=== PATIENT | female | born 1955 | race Caucasian/White ===

== ENCOUNTER 2018-11-29 13:35 | Inpatient (IN) ==
[2018-11-29 14:39] LABS: Appearance Urine Clear (Clear); Bacteria Urine Automated Negative (Negative); Bilirubin Urine Negative (Negative); Blood Urine Negative (Negative); Color Urine Yellow; Epithelial Cell Urine Auto >30 /lpf (0-5); Glucose Urine UA Negative (Negative); Ketones Urine Negative (Negative); Leukocyte Esterase Urine Trace (Negative); Nitrite Urine Negative (Negative); Protein Urine Negative (Negative); RBC Urine Automated 0-4 /hpf (0-4); Specific Gravity Urine 1.011 (1.000-1.030); Urobilinogen Urine Negative (Negative); pH Urine 5.5 (4.5-7.5)
[2018-11-29 15:08] LABS: Basophils # (auto) 0.05 K/uL (0-0.2); Basophils % (auto) 1.6 %; Eosinophils # (auto) 0.12 K/uL (0-0.5); Eosinophils % (auto) 3.8 %; Hematocrit (blood only) 37.2 % (37-47); Hemoglobin 13.3 g/dL (12.0-16.0); Lymphocytes % (auto) 25.1 %; Mean Corpuscular Hgb Conc 35.8 g/dL (32-36); Mean Corpuscular Volume 87.3 fL (80-100); Mean Platelet Volume 11.4 fL (7.4-10.4); Monocytes # (auto) 0.43 K/uL (0.11-0.59); Monocytes % (auto) 13.5 %; Neutrophils # (auto) 1.79 K/uL (1.4-6.5); Platelet Count 197 K/uL (130-400); RDW Coefficient of Variation 13.9 % (11.5-14.5); RDW Standard Deviation 43.9 fL (36.4-46.3); Red Blood Count 4.26 M/uL (4.2-5.4); White Blood Count 3.19 K/uL (4.8-10.8)
[2018-11-29 15:11] LABS: Amphetamines+Metham, Urine Neg (Neg); Barbiturates, Urine Neg (Neg); Benzodiazepine, Urine Neg (Neg); Cocaine, Urine Neg (Neg); MDMA (Ecstacy), Urine Neg (Neg); Methadone, Urine Neg (Neg); Opiate, Urine Neg (Neg); Phencyclidine, Urine Neg (Neg)
[2018-11-29 15:22] LABS: Albumin Level 3.7 gm/dl (3.4-5.0); BUN Creatinine Ratio 14.8 (10-20); Calcium 8.9 mg/dl (8.5-10.1); Creatinine Clr Calc Pharmacy 80.3 ml/min; Est GFR (African American) 106.5; Est GFR (Non-African American) 91.9; Potassium 3.9 mmol/L (3.5-5.1)
[2018-11-29 15:30] LABS: Acetaminophen < 2 ug/ml (10-30); Salicylate < 1.7 mg/dl (2.8-20)
[2018-11-29 15:32] LABS: Albumin Globulin Ratio 1.1 (0.9-2); Bilirubin,Total 0.5 mg/dl (0.2-1); Globulin 3.5 gm/dl (2.5-4.0); Total Protein 7.2 gm/dl (6.4-8.2)
--- NOTE | 2018-11-29 15:40 | Emergency Department Note ---
Entered by Ashlee Meadows acting as a scribe for Dago Hopkins M.D. History of Present Illness General Chief complaint: Mental Health Evaluation Stated complaint: MENTAL HEALTH EVALUATION Source: patient and family () History of Present Illness Provider complaint: suicidal ideation Onset (ago): week(s) (few weeks ago) Location: left and right Maximum Pain Intensity: 3 Quality: + other (suicidal ideation) Relieved By: not by medication Associated symptoms: + other (Negative visual hallucinations; Negative auditory hallucinations; Positive insomnia); no loss of appetite The patient is a 63 year old female who presents to the Emergency Room with complaints of an episode of suicidal ideation that started a few weeks ago. The patient states that she had back surgery on August 11 which results in a plastic guard over her incision. The patient expresses that afterwards she felt like bugs were crawling underneath her incision but blamed it on narcotics. The patient reports continuing to feel this sensation for a while and assumes that it was in her head the whole time. The patient states that afterwards she complained of bug infestation around her household and had it investigated which resulted to no findings of infestation. The patient reports going to her family doctor who said she didn't have lice of bug bites. The patient expresses that afterwards she developed OCD behavior which involved specific placement of items and cleanliness of household. The patient denies ever having OCD. The patient reports that she feels like her skin is burning and something is in her nose. The patient expresses that she has a suicidal plan and has started writing letters to her and children. The patient denies self harm or a history of depression. The patient states that 18 years ago she was admitted because she was having a breakdown but reports not having a suicidal plan. The patient states that other than having bursitis in her hips her recovery from surgery was well. The patient states that she is eating and drinking fine but is unable to sleep. The patient denies visual and auditory hallucinations. The patient was prescribed depression medication three weeks ago. The patient's states that the patient is known to be highs strung. Home Medications Home Medications Medication Instructions Recorded Confirmed Type Hair,Skin and Nails 1 tab PO DAILY 11/29/18 11/29/18 History acetaminophen [Tylenol Extra 1,000 mg PO Q6 PRN 11/29/18 11/29/18 History Strength] buspirone 5 mg PO QAM 11/29/18 11/29/18 History buspirone 10 mg PO QPM 11/29/18 11/29/18 History agtykgjjkt-immvouyawejxw-avwl 1 - 2 cap PO Q8 PRN 11/29/18 11/29/18 History [Fioricet] cholecalciferol (vitamin D3) 1,000 unit PO DAILY 11/29/18 11/29/18 History [Vitamin D3] chromium picolinate 200 mcg PO DAILY 11/29/18 11/29/18 History conjugated estrogens [Premarin] 0.3 mg PO DAILY 11/29/18 11/29/18 History gabapentin 300 mg PO HS 11/29/18 11/29/18 History hydroxychloroquine 400 mg PO HS 11/29/18 11/29/18 History hydroxyzine HCl 10 mg PO QID PRN 11/29/18 11/29/18 History ketoconazole 1 % TOPICAL 3XWK 11/29/18 11/29/18 History linaclotide [Linzess] 145 mcg PO DAILY PRN 11/29/18 11/29/18 History spironolactone 25 mg PO BID 11/29/18 11/29/18 History topiramate 75 mg PO BID 11/29/18 11/29/18 History Allergies Allergy/AdvReac Type Severity Reaction Status Date / Time Iodinated Contrast- Oral and Allergy Unknown 0 Verified 05/10/15 17:46 IV Dye Sulfa (Sulfonamide Allergy Unknown Verified 05/10/15 17:46 Antibiotics) Past Med/Surg History Medical History Constipation GERD (gastroesophageal reflux disease) No pertinent family history Obesity Osteoarthritis Surgical History History of lumbar fusion Family History Other No pertinent family history Social History Preferred Language: Lao Visual Impairment: No Limitations Hearing Ability: Normal marital status: Current Living Situation: Family current occupational status: unemployed Feels Safe at Home: Yes Smoking Status: Never smoker Hx Substance Use: No Review of Systems See HPI for pertinent positives & negatives. and A total of 10 systems reviewed and were otherwise negative Physical Exam Vital Signs Vital Signs - 24 hr 11/29/18 13:38 11/29/18 15:45 Temperature 36.4 C L Temperature Source Oral Sepsis Recent Fever Within 48 Hours No Sepsis New/Unexplained Change in Mental Status No Sepsis Action Taken by Nursing No Action Required Pulse Rate 87 Pulse Rate [Right Finger] 70 Pulse Rhythm Regular Pulse Rhythm [Right Finger] Regular Pulse Strength Normal Pulse Strength [Right Finger] Normal Respiratory Rate 20 20 Respiratory Effort / Characteristics Non-Labored Spontaneous Non-Labored Spontaneous Respiratory Depth Normal Normal Respiratory Pattern Regular Regular Blood Pressure 186/110 H Blood Pressure [Right Arm] 163/75 H Blood Pressure Mean 135 Blood Pressure Mean [Right Arm] 104 Blood Pressure Position Sitting Blood Pressure Position [Right Arm] Sitting Pulse Oximetry 100 100 Oxygen Delivery Method Room Air Room Air GENERAL: Awake, alert, anxious-appearing and slightly tearful. HENT: Normocephalic, atraumatic. EYES: Normal conjunctiva. Sclera non-icteric. RESPIRATORY: Clear to auscultation. No wheezes. Normal respiratory effort. CARDIAC: Normal rate. Normal rhythm. Extremities warm and well perfused. GI: Soft, non-distended. MUSCULOSKELETAL: Atraumatic. Chest examination reveals no tenderness. There is no CVA tenderness to palpation. . SKIN: Warm and dry. No rash or jaundice noted. PSYCH: Denies HI endorses SI. Thoughts of bug infestation denies other hallucinations. Anxious. Course 1400: Past medical records reviewed. The patient was evaluated in room A8. A complete history and physical exam was performed. 1540: I reviewed the patient's case with [address] [place] [id number]. They will evaluate the patient for further management. 1818: I was informed that the patient was accepted into [address] [facility] Consultations Consultation #1: I reviewed the patient's case with [address] [place] [id number]. They will evaluate the patient for further management. Time: 15:40 Medical Decision Making Differential Diagnosis Differential diagnosis includes: mood disorder, infection, hypoglycemia, electrolyte abnormalities, cardiac sources, intracerebral event, toxicologic, neurologic, as well as others were entertained. Medical Records Attestation: I reviewed the patient's medical records. Home Medications Current Medication List: was personally reviewed by me Laboratory Data Attestation: I reviewed the patient's lab results. Result diagrams: 11/29/18 14:43 11/29/18 14:43 Lab Results 11/29/18 11/29/1811/29/19 Range/Units 13:56 13:56 14:43 WBC 3.19 L (4.8-10.8) K/uL RBC 4.26 (4.2-5.4) M/uL Hgb 13.3 (12.0-16.0) g/dL Hct 37.2 (37-47) % MCV 87.3 (80-100) fL MCH 31.2 (25-34) pg MCHC 35.8 (32-36) g/dL RDW Std Deviation 43.9 (36.4-46.3) fL RDW Coeff of Dustin 13.9 (11.5-14.5) % Plt Count 197 (130-400) K/uL MPV 11.4 H (7.4-10.4) fL Immature Gran % (Auto) 0.0 % Neut % (Auto) 56.0 % Lymph % (Auto) 25.1 % Reagan % (Auto) 13.5 % Eos % (Auto) 3.8 % Baso % (Auto) 1.6 % Immature Gran # (Auto) 0.00 (0.00-0.02) K/uL Neut # (Auto) 1.79 (1.4-6.5) K/uL Lymph # (Auto) 0.80 L (1.2-3.4) K/uL Reagan # (Auto) 0.43 (0.11-0.59) K/uL Eos # (Auto) 0.12 (0-0.5) K/uL Baso # (Auto) 0.05 (0-0.2) K/uL Sodium (136-145) mmol/L Potassium (3.5-5.1) mmol/L Chloride (98-107) mmol/L Carbon Dioxide (21-32) mmol/L Anion Gap (3-11) BUN (7-18) mg/dl Creatinine (0.6-1.2) mg/dl Est Cr Clr Drug Dosing ml/min Est GFR ( Amer) Est GFR (Non-Af Amer) BUN/Creatinine Ratio (10-20) Glucose (70-99) mg/dl Calcium (8.5-10.1) mg/dl Total Bilirubin (0.2-1) mg/dl AST (15-37) U/L ALT (12-78) U/L Alkaline Phosphatase (45-117) U/L Total Protein (6.4-8.2) gm/dl Albumin (3.4-5.0) gm/dl Globulin (2.5-4.0) gm/dl Albumin/Globulin Ratio (0.9-2) TSH (0.300-4.500) uIu/ml Urine Color Yellow Urine Appearance Clear (Clear) Urine pH 5.5 (4.5-7.5) Ur Specific [place] 1.011 (1.000-1.030) Urine Protein Negative (Negative) Urine Glucose (UA) Negative (Negative) Urine Ketones Negative (Negative) Urine Blood Negative (Negative) Urine Nitrite Negative (Negative) Urine Bilirubin Negative (Negative) Urine Urobilinogen Negative (Negative) Ur Leukocyte Esterase Trace H (Negative) Urine WBC (Auto) 1-5 (0-5) /hpf Urine RBC (Auto) 0-4 (0-4) /hpf U Hyaline Cast (Auto) 1-5 (0-5) /lpf U Epithel Cells (Auto) >30 H (0-5) /lpf Urine Bacteria (Auto) Negative (Negative) Salicylates (2.8-20) mg/dl Urine Opiates Screen Neg (Neg) Ur Methadone, Qual Neg (Neg) Acetaminophen (10-30) ug/ml Urine Barbiturates Neg (Neg) Ur Phencyclidine (PCP) Neg (Neg) U Amphetamin/Meth Scrn Neg (Neg) MDMA (Ecstasy) Screen Neg (Neg) U Benzodiazepines Scrn Neg (Neg) Ur Cocaine Metabolite Neg (Neg) U Marijuana (THC) Screen Neg (Neg) Ethyl Alcohol mg/dL (0-3) mg/dl 11/29/18 11/29/18 11/29/18 Range/Units 14:43 14:43 14:43 WBC (4.8-10.8) K/uL RBC (4.2-5.4) M/uL Hgb (12.0-16.0) g/dL Hct (37-47) % MCV (80-100) fL MCH (25-34) pg MCHC (32-36) g/dL RDW Std Deviation (36.4-46.3) fL RDW Coeff of Dustin (11.5-14.5) % Plt Count (130-400) K/uL MPV (7.4-10.4) fL Immature Gran % (Auto) % Neut % (Auto) % Lymph % (Auto) % Reagan % (Auto) % Eos % (Auto) % Baso % (Auto) % Immature Gran # (Auto) (0.00-0.02) K/uL Neut # (Auto) (1.4-6.5) K/uL Lymph # (Auto) (1.2-3.4) K/uL Reagan # (Auto) (0.11-0.59) K/uL Eos # (Auto) (0-0.5) K/uL Baso # (Auto) (0-0.2) K/uL Sodium 138 (136-145) mmol/L Potassium 3.9 (3.5-5.1) mmol/L Chloride 108 H (98-107) mmol/L Carbon Dioxide 22 (21-32) mmol/L Anion Gap 8.0 (3-11) BUN 10 (7-18) mg/dl Creatinine 0.71 (0.6-1.2) mg/dl Est Cr Clr Drug Dosing 80.3 ml/min Est GFR ( Amer) 106.5 Est GFR (Non-Af Amer) 91.9 BUN/Creatinine Ratio 14.8 (10-20) Glucose 76 (70-99) mg/dl Calcium 8.9 (8.5-10.1) mg/dl Total Bilirubin 0.5 (0.2-1) mg/dl AST 24 (15-37) U/L ALT 29 (12-78) U/L Alkaline Phosphatase 82 (45-117) U/L Total Protein 7.2 (6.4-8.2) gm/dl Albumin 3.7 (3.4-5.0) gm/dl Globulin 3.5 (2.5-4.0) gm/dl Albumin/Globulin Ratio 1.1 (0.9-2) TSH 1.330 (0.300-4.500) uIu/ml Urine Color Urine Appearance (Clear) Urine pH (4.5-7.5) Ur Specific [place] (1.000-1.030) Urine Protein (Negative) Urine Glucose (UA) (Negative) Urine Ketones (Negative) Urine Blood (Negative) Urine Nitrite (Negative) Urine Bilirubin (Negative) Urine Urobilinogen (Negative) Ur Leukocyte Esterase (Negative) Urine WBC (Auto) (0-5) /hpf Urine RBC (Auto) (0-4) /hpf U Hyaline Cast (Auto) (0-5) /lpf U Epithel Cells (Auto) (0-5) /lpf Urine Bacteria (Auto) (Negative) Salicylates < 1.7 L (2.8-20) mg/dl Urine Opiates Screen (Neg) Ur Methadone, Qual (Neg) Acetaminophen < 2 L (10-30) ug/ml Urine Barbiturates (Neg) Ur Phencyclidine (PCP) (Neg) U Amphetamin/Meth Scrn (Neg) MDMA (Ecstasy) Screen (Neg) U Benzodiazepines Scrn (Neg) Ur Cocaine Metabolite (Neg) U Marijuana (THC) Screen (Neg) Ethyl Alcohol mg/dL < 3.0 (0-3) mg/dl Blood Pressure Blood Pressure Findings: Normal blood pressure MDM Narrative 63-year-old female with a history of GERD and cutaneous lupus as well as depression presenting to the emergency department today with her . Patient was evidently evaluated by can help. Seen by dermatology as she was fee ling that she was being bitten by bugs. She is been seeing bugs throughout the house a lot. These have not been real. Was some verbalization to others that she wanted to harm her self and came in for evaluation for possible and inpatient psychiatric treatment. No history of this. No drug or alcohol history. Basic medical clearance was completed. Did see the rotary furnace operator this morning. Patient was agreeable for inpatient treatment she does endorse some thoughts of wanting to harm her self. Endorses plan but did not give any specific details. Denies other hallucinations or HI. Given the severity of the delusional parasitosis causing her to have thoughts of self-harm and writing letters to family members believe inpatient treatment be beneficial. Case management assisted with evaluation. Referral to [facility] made. Evaluated there and accepted for further inpatient psychiatric treatment. 201 signed. Impression & Plan Delusions of parasitosis, Suicidal thoughts, OCD (obsessive compulsive disorder) Discharge Plan Visit Data *Final* Discharge Date/Time: 11/29/18 18:20 Chief Complaint: Mental Health Evaluation Stated Complaint: MENTAL HEALTH EVALUATION ED Provider: Dago Hopkins Discharge Problem: Delusions of parasitosis, Suicidal thoughts, OCD (obsessive compulsive disorder) Patient Disposition: Admitted As Inpatient Discharge Instructions Interventions: ED Discharge Assessment Last Done: 11/29/18 18:20 Discharge Problem: OCD (obsessive compulsive disorder) Qualifiers: Obsessive-compulsive disorder type: unspecified Qualified Code(s): F42.9 - Obsessive-compulsive disorder, unspecified The scribe's documentation has been prepared under my direction and personally reviewed by me in its entirety. I confirm that the note above accurately reflects all work, treatment, procedures, and medical decision making performed by me.
[2018-11-29] MEDS ORDERED: BISMUTH SUBSALICYLATE PER ML OMNICELL CHARGE PO PRN (19:17)
[2018-11-29] MEDS ORDERED: SODIUM CHLORIDE 0.65% NA SOLN 45 ML (OCEAN) PRN (19:17)
[2018-11-29] MEDS ORDERED: MAGNESIUM HYDROXIDE SUSP 30 ML UDC PO PRN (19:17)
[2018-11-29] MEDS ORDERED: ALUMINUM/MAGNESIUM SUSP 30 ML UDC PO PRN (19:17)
[2018-11-29] MEDS ORDERED: hydrOXYzine HCl 10 MG TAB PO PRN (19:22)
[2018-11-29] MEDS: TOPIRAMATE 25 MG TAB PO SCH (21:33)
[2018-11-29] MEDS: HYDROXYCHLOROQUINE SULFATE 200 MG TAB PO SCH (21:33)
[2018-11-29] MEDS: SPIRONOLACTONE 25 MG TAB PO SCH (21:34)
[2018-11-29] MEDS: GABAPENTIN 300 MG CAP PO SCH (21:36)
[2018-11-30] MEDS: SPIRONOLACTONE 25 MG TAB PO SCH ×2 (08:08→17:20)
[2018-11-30] MEDS: TOPIRAMATE 25 MG TAB PO SCH ×2 (08:09→21:27)
[2018-11-30] MEDS: ESTROGENS, CONJUGATED 0.3 MG TAB PO SCH (08:09)
[2018-11-30] MEDS: CHOLECALCIFEROL 1,000 UNITS TAB PO SCH (08:09)
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
[2018-11-30] MEDS ORDERED: BUTALBITAL/ACETAMIN/CAFFEINE TAB PO PRN (18:11)
[2018-11-30] MEDS: GABAPENTIN 300 MG CAP PO SCH (21:28)
[2018-11-30] MEDS: HYDROXYCHLOROQUINE SULFATE 200 MG TAB PO SCH (21:28)
[2018-12-01] MEDS: SPIRONOLACTONE 25 MG TAB PO SCH ×2 (08:46→17:09)
[2018-12-01] MEDS: ESTROGENS, CONJUGATED 0.3 MG TAB PO SCH (08:47)
[2018-12-01] MEDS: TOPIRAMATE 25 MG TAB PO SCH ×2 (08:47→21:21)
[2018-12-01] MEDS: CHOLECALCIFEROL 1,000 UNITS TAB PO SCH (08:47)
[2018-12-01] MEDS ORDERED: NON-FORMULARY MEDICATION (Chromium Picolinate 200 MCG) PO SCH (09:00)
[2018-12-01] MEDS ORDERED: NON-FORMULARY MEDICATION (Cholecalciferol (Vitamin D3) [Vitamin D3] 1,000 UNITS) PO SCH (09:00)
[2018-12-01] MEDS: SERTRALINE HCL 50 MG TABLET PO SCH (10:38)
--- NOTE | 2018-12-01 12:55 | Psychiatric Progress Note ---
Date of Service December 01, 2018 Impression / Recommendations Impression 63-year-old female admitted voluntarily for inpatient psychiatric treatment on 11/29/18 due to obsessional belief of exposure to bugs. Pt constant uncomfortable feeling/belief that her home was being infiltrated by bugs since a spinal surgery in 07/2018. Pt admits to progression of this obsessive thought - leading to rather significant interference with her functioning at home. Hopelessness escalated to the point of suicidal ideation, which was expressed to patient's derrick builder - who ultimately recommended mental health evaluation. Pt presentation is rather interesting, as she denies former psychiatric history. She does not verbalize any other obsessions or compulsions known to her, and denies criteria to suggest a formal anxiety or depressive disorder. Pt endorses obsessional thoughts, but does not indicate any compulsive actions as a result of this anxiety. Although she is very specific about the presence of bugs and her ability to identify "safe areas" where she is free of risk of contamination - she does not clearly verbalize true hallucinations (auditory, visual, or tactile). The differential includes delusional parasitosis, OCD, depression with psychosis, or some combination of these. Treatment initiated to target obsessive thoughts and low mood. Pt started on sertraline, which will be titrated as tolerated to target symptoms. Additional information will likely be necessary in order to determine if there are other OCD-like tendencies in patient's history, or her these beliefs/behavior may be more delusional in nature. Can consider use of an antipsychotic medication as augmentation if indicated as additional history is obtained. Will need to schedule family meeting with patient's , and obtain collateral information from him regarding patient's history of symptoms. At this time, inpatient psychiatric hospitalization in medically necessary due to obsessive/delusional belief of bugs being present on the patient and in her home, limited ability to function at home with current symptoms, and verbalization of suicidal ideation with rather deep consideration of the next steps in her plan. Patient is at high risk of harm to herself is she is discharged premature without adequate psychiatric treatment. (1) Suicidal thoughts: 11/30 - Admitted to a locked inpatient behavioral health unit, on q15 minute safety checks - Encourage medication initiation/adjustments as indicated - Encourage participation in group and recreational therapies - Gather collateral information from outpatient providers - Suggest family meeting to involve outpatient supports in safety planning - Arrange appropriate aftercare 12/01 - Denies overt SI, but remains somewhat hopeless - No progress at this time with safety or discharge planning (2) OCD (obsessive compulsive disorder): 11/30 - Will treat initially for an obsessive presentation, with possible obsessive compulsive disorder presentation - will be beneficial to gather collateral information from the patient's to determine if she may be minimizing other OCD tendencies to further clarify diagnosis - Differential includes anxiety NOS, psychosis, NOS, anxiety or depressive disorder with psychotic features, or condition better explained by a medical condition (surgical complications leading to paresthesia, etc.) - Reviewed recommendation for initiation of an SSRI to target obsessions and related anxiety. Risks and benefits reviewed. Will begin sertraline, starting tomorrow morning at 50mg daily - can titrate dose as tolerated - Will require collateral information from family, and suggesting family meeting prior to discharge to discuss aftercare and safety planning - Encourage participation in group and recreational programming - Hydroxyzine prn for acute anxiety 12/01 - Continue treatment as above, received initial dose of sertraline this morning - titrate as tolerated to target obsessive anxiety and depressed mood - Obtain collateral information from patient's , schedule family meeting to discuss discharge/safety planning - Continue to encourage participation in group and recreational programming 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 - Continue home dose of hydroxychloroquine 400mg qHS Inventory Assets Strengths: Willingness for treatment, support of Needs: Reality-testing of obsessive thoughts; initiation of appropriate medications to target symptoms Risk Factors Assessment Male: No : Yes Do You Have Access To A Gun?: Yes ( to secure) Health Problems: Yes Mental Health Diagnoses: No Substance Use Disorders: No Previous Attempt: No Previous Psychiatric Hospitalization: Yes ([facility] - 09/2000) Hopelessness: Yes Smoker: No Protective Factors Assessment Taoist Beliefs: Yes : Yes Responsible for Young Children: No Employed: No (Retired from [employer]) Stable Relationships: Yes Supportive Family: Yes Interval History Identifying Information LAURA MONTOYA is a 63-year-old F who currently lives in [place] with her . Pt reports a history of depressive episodes and anxiety, but has no formal psychiatric providers. Pt was admitted on 08/05/19 18:07 on a 201 voluntary commitment for suicidal ideation and concerning belief that she was exposed to "bugs" which have infiltrated her home following a surgery in 07/2018. Pt had reported suicidal plan to overdose on medications, which she acquired. Pt was planning to write goodbye letters to family and divide her belongings when she decided to report her suicidal ideation to her derrick builder - who ultimately recommended admission. Chief Complaint "So what is this 72-hour hold I signed?" Review of Systems Notes Constitutional: reports discomfort last evening, affecting sleep Cardiovascular: denied Respiratory: denied Gastrointestinal: denied Neurological: denied Psychiatric: denies symptoms other than stated above Total of at least 10 systems reviewed, pertinent positives as above and in HPI. Sleep Information Total Hours of Sleep: 6.5 Sleep Comments: pt given vistaril per rn. pt on q-15 minute checks Meal Information Percent Meal Consumed - Breakfast: 90 Percent Meal Consumed - Lunch: 100 Percent Meal Consumed - Dinner: 100 Subjective Subjective Patient was seen & assessed and interval progress reviewed with Treatment Team. Staff report the patient has been participating in group. Discussed need to gather collateral information from the patient's and schedule a family meeting. Pt was seen today to assess progress since admission. Pt initially inquires about a "72-hour hold" she was informed about in the ED. Pt denies having signed her 72-hour notice since admission to the unit. Mental health rights were explained to the patient as it relates to her signing in for voluntary admission, ability to sign a 72-hour notice requesting to leave treatment AMA, and explanation of safety and discharge planning required in order to feel comfortable with discharge. Pt asked appropriate questions, and admits she was just desiring to have a clearer understanding. Pt states her question stemmed from not sleeping well last evening - uncomfortable bed considering her recent spinal surgery. Pt states, "I just didn't sleep well and wanted to be home, so I didn't know how much longer I would need to be here." Pt was reminded about initiation of sertraline and remained agreeable to the medication trial. She admits that her obsessive thoughts and anxiety is reduced on the unit, but not resolved entirely. She continues to be concerned about the contamination of her home with "bugs" - stating her brought clothes for her last evening, which she washed rather promptly after receiving them. Pt states, "the counselor suggested I not wash them, then said maybe only wash half. After they pulled out all the outfits with strings and gave me the stuff I was allowed to have, there wasn't much left - so I washed it all." Pt states she is somewhat uncomfortable with having a roommate due to concerns for potential contamination, but continues to deny hallucinations. Pt denies SI and is feeling mildly more hopeful after sharing these thoughts and being able to openly process them. She is aware of our recommendations for a psychiatric medication prescriber and therapist on discharge, to continue to aid her in treatment of these concerns. Pt denied other specific needs or concerns today. Physical Exam Psychiatric Orientation: alert, oriented x 3 and cooperative Apperance: appropriately dressed, appropriately groomed and appeared stated age Eye Contact: good eye contact Motor Behavior: no abnormal motor movements (seated at table in lunch room) Speech: normal rate/rhythm/volume of speech Affect: + blunted affect (not appearing acutely depressed or anxious, but mildly fatigued) Mood: + anxious mood ("still a little bit worried") Thought Process: goal directed thought process and clear/coherent thought process Thought Content: + obsessions (some obsessive thoughts regarding bugs and contamination while on unit) and + hopelessness (ongoing, but improved somewhat); no delusions (at this time obsessions are not clearly in the realm of delusional beliefs) Suicidal Thoughts: denies suicidal thoughts and denies suicidal intent Homicidal Thoughts: denies homicidal thoughts Hallucinations: no auditory hallucinations, no visual hallucinations and no tactile hallucinations Cognition: attention grossly intact and language grossly intact Estimated Intelligence: consistent with education level Insight: + fair insight Judgement: + fair judgement Vital Signs (Past 24 Hours) Last Vital Signs Temp 37 C 12/01/18 06:56 Pulse 74 12/01/18 06:58 Resp 16 12/01/18 06:56 BP 151/87 H 12/01/18 06:58 Pulse Ox 100 11/29/18 19:31 Results & Data Current Inpatient Medications Current Inpatient Medications: Current Inpatient Medications Acetaminophen (Tylenol) 650 mg PO Q4H PRN PRN Reason: Headache or Minor Fever Stop: 12/29/18 19:16 Acetaminophen/Butalbital/Caffeine (Fioricet) 1 tab PO Q8 PRN PRN Reason: Migraine Headache Stop: 12/30/18 18:10 Al Hydrox/Mg Hydrox/Simethicone (Maalox) 30 ml PO Q4H PRN PRN Reason: GI Upset Stop: 12/29/18 19:16 Bismuth Subsalicylate (Kaopectate) 15 ml PO PRN PRN PRN Reason: Loose Stool Stop: 12/29/18 19:16 Buspirone HCl (Buspar) 7.5 mg PO [facility] Stop: 12/29/18 21:59 Last Admin: 11/30/18 21:27 Dose: 7.5 mg Documented by: Buspirone HCl (Buspar) [facility] [place] Stop: 12/30/18 08:59 Last Admin: 12/01/18 08:46 Dose: 5 mg Documented by: Estrogens Conjugated (Premarin) 0.3 mg PO QAM [facility] Stop: 12/30/18 08:59 Last Admin: 12/01/18 08:47 Dose: 0.3 mg Documented by: Gabapentin (Neurontin) 300 mg PO [facility] Stop: 12/29/18 21:59 Last Admin: 11/30/18 21:28 Dose: 300 mg Documented by: Hydroxychloroquine Sulfate (Plaquenil) 400 mg PO [facility] Stop: 12/29/18 21:59 Last Admin: 11/30/18 21:28 Dose: 400 mg Documented by: Hydroxyzine HCl (Vistaril) 50 mg PO HSZ PRN PRN Reason: Insomnia Stop: 12/29/18 19:16 Last Admin: 11/30/18 23:24 Dose: 50 mg Documented by: Hydroxyzine HCl (Vistaril) 25 mg PO Q4H PRN PRN Reason: Anxiety Stop: 12/29/18 19:16 Last Admin: 11/30/18 09:58 Dose: 25 mg Documented by: Hydroxyzine HCl (Vistaril) 10 mg PO QID PRN PRN Reason: Anxiety Stop: 12/29/18 19:21 Magnesium Hydroxide (Milk Of Magnesia) 30 ml PO DAILY PRN PRN Reason: Heartburn Stop: 12/29/18 19:16 Miscellaneous (Order Awaiting Action) 1 ea N/A QS [facility] Stop: 12/31/18 00:00 Last Admin: 12/01/18 10:37 Dose: Not Given Documented by: Sertraline HCl (Zoloft) 50 mg PO QAM [facility] Stop: 12/31/18 09:29 Last Admin: 12/01/18 10:38 Dose: 50 mg Documented by: Sodium Chloride ([place] Nasal) 1 - 2 sprays NA PRN PRN PRN Reason: Nasal Dryness/Congestion Stop: 12/29/18 19:16 Spironolactone (Aldactone) 25 mg PO BID17 [facility] Stop: 12/29/18 19:59 Last Admin: 12/01/18 08:46 Dose: 25 mg Documented by: Topiramate (Topamax) 75 mg PO BID [facility] Stop: 12/29/18 20:59 Last Admin: 12/01/18 08:47 Dose: 75 mg Documented by: Vitamin D (Vitamin D3) 1,000 units PO QAM [facility] Stop: 12/30/18 08:59 Last Admin: 12/01/18 08:47 Dose: 1,000 units Documented by: Mental Health & Subst Abuse Tx Psychiatrist Name of Psychiatrist: Denise Whyte Psychiatrist's Psychiatric Appointment Comment: [id number] [facility] [address] Therapist Name of Therapist: [facility] - Shasha Lamligia Therapist's Date of Therapist Appointment: 12/06/18 Time of Therapist Appointment: 2pm. Therapy Appointment Comment: [address], [facility] [address], [place] [id number] Flame Cutter Name of Flame Cutter: None Post Discharge Appointments Primary Care Physician Name Of Family Doctor: [facility] Time of Appointment with PCP: follow up as needed. Provider Appointment Comment: [address], [place] [id number] CPT Code CPT Code 31830 (1) OCD (obsessive compulsive disorder) Obsessive-compulsive disorder type: unspecified Qualified Code(s): F42.9 - Obsessive-compulsive disorder, unspecified
[2018-12-01] MEDS: ACETAMINOPHEN 325 MG TAB PO PRN (14:39)
[2018-12-01] MEDS: LINZESS 145 MCG PO SCH (21:20)
[2018-12-01] MEDS: HYDROXYCHLOROQUINE SULFATE 200 MG TAB PO SCH (21:22)
[2018-12-01] MEDS: GABAPENTIN 300 MG CAP PO SCH (21:22)
[2018-12-02] MEDS: ACETAMINOPHEN 325 MG TAB PO PRN ×2 (00:39→12:30)
[2018-12-02] MEDS: SPIRONOLACTONE 25 MG TAB PO SCH ×2 (08:12→17:11)
[2018-12-02] MEDS: TOPIRAMATE 25 MG TAB PO SCH ×2 (08:13→21:42)
[2018-12-02] MEDS: LINZESS 145 MCG PO SCH ×2 (08:13→21:42)
[2018-12-02] MEDS: ESTROGENS, CONJUGATED 0.3 MG TAB PO SCH (08:13)
[2018-12-02] MEDS: SERTRALINE HCL 50 MG TABLET PO SCH (08:14)
[2018-12-02] MEDS: CHOLECALCIFEROL 1,000 UNITS TAB PO SCH (08:14)
[2018-12-02] MEDS ORDERED: KETOCONAZOLE 1% TOP SCH (08:30)
--- NOTE | 2018-12-02 08:41 | Psychiatric Progress Note ---
Date of Service December 02, 2018 Impression / Recommendations Impression 63-year-old female admitted voluntarily for suicidal ideation with a plan to overdose on hundreds of opiates which she stockpiled and obsessive thoughts about bug infestation in her home. The differential includes delusional parasitosis, OCD, depression with psychosis, or some combination of these. Sertraline initiated to target obsessive thoughts and low mood, but titration limited by GI side effects. Can consider use of an antipsychotic medication as augmentation if SSRI is insufficient. She has a meeting with her today, and is being referred for outpatient care. At this time, inpatient psychiatric hospitalization in medically necessary due to obsessive/delusional belief of bugs being present on the patient and in her home, limited ability to function at home with current symptoms, and suicidal ideation if these symptoms continue as "I don't want to live like this," with a plan and access to the means. Patient is at high risk of harm to herself is she is discharged premature without adequate psychiatric treatment. (1) Suicidal thoughts: 11/30 - Admitted to a locked inpatient behavioral health unit, on q15 minute safety checks - Encourage medication initiation/adjustments as indicated - Encourage participation in group and recreational therapies - Gather collateral information from outpatient providers - Suggest family meeting to involve outpatient supports in safety planning - Arrange appropriate aftercare 12/01 - Denies overt SI, but remains somewhat hopeless - No progress at this time with safety or discharge planning 12/02 - Family meeting with today - patient agrees to have him bring in her stash of opiate pain medications for safe disposal. Will also recommend that firearms be locked so that patient will not have access. - Work on safety plan - few supports/people she can talk to about stressors, home alone much of the time while working. (2) OCD (obsessive compulsive disorder): 11/30 - Will treat initially for an obsessive presentation, with possible obsessive compulsive disorder presentation - will be beneficial to gather collateral information from the patient's to determine if she may be minimizing other OCD tendencies to further clarify diagnosis - Differential includes anxiety NOS, psychosis, NOS, anxiety or depressive disorder with psychotic features, or condition better explained by a medical condition (surgical complications leading to paresthesia, etc.) - Reviewed recommendation for initiation of an SSRI to target obsessions and related anxiety. Risks and benefits reviewed. Will begin sertraline, starting tomorrow morning at 50mg daily - can titrate dose as tolerated - Will require collateral information from family, and suggesting family meeting prior to discharge to discuss aftercare and safety planning - Encourage participation in group and recreational programming - Hydroxyzine prn for acute anxiety 12/01 - Continue treatment as above, received initial dose of sertraline this morning - titrate as tolerated to target obsessive anxiety and depressed mood - Obtain collateral information from patient's , schedule family meeting to discuss discharge/safety planning - Continue to encourage participation in group and recreational programming 12/02 - Continue sertraline 50mg daily and monitor diarrhea. Continue titration once improves/resolves. - Continue participation in groups and therapy, working on stressors and healthy ways to cope. 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 - Continue home dose of hydroxychloroquine 400mg qHS Inventory Assets Strengths: Willingness for treatment, support of Needs: Reality-testing of obsessive thoughts; initiation of appropriate medications to target symptoms Risk Factors Assessment Male: No : Yes Do You Have Access To A Gun?: Yes ( to secure) Health Problems: Yes Mental Health Diagnoses: No Substance Use Disorders: No Previous Attempt: No Previous Psychiatric Hospitalization: Yes ([facility] - 09/2000) Hopelessness: Yes Smoker: No Protective Factors Assessment Temple Beliefs: Yes : Yes Responsible for Young Children: No Employed: No (Retired from [employer]) Stable Relationships: Yes Supportive Family: Yes Interval History Identifying Information LAURA MONTOYA is a 63-year-old F who currently lives in [place] with her , has a history of depression and anxiety, but no outpatient mental health treatment, who was admitted on 11/29/18 18:07 on a 201 voluntary commitment for suicidal ideation and obsessive thoughts about "bugs" which she believed infiltrated her home following a surgery in 07/2018. Pt had reported suicidal plan to overdose on medications, and had a stash of them at home, and was planning to write goodbye letters to family and divide her belongings when she decided to report her suicidal ideation to her chemical engineering intern, who called [facility]. Chief Complaint "I'm having some diarrhea". Review of Systems Notes diarrhea, mild nausea/cramping Sleep Information Total Hours of Sleep: 5.25 Sleep Comments: received 2 doses of hs vistaril and a dose of tylenil for generalizes aches/pain. had 2 episodes of diarrhea-she relates it to the start of her new antidepressant Meal Information Percent Meal Consumed - Breakfast: 90 Percent Meal Consumed - Lunch: 100 Percent Meal Consumed - Dinner: 50 Subjective Subjective Patient was seen & assessed and interval progress reviewed with Nursing and social work. Staff report she had a visit from her last night, and they have a family meeting this afternoon. Staff spoke with her who provided collateral information: Collateral from indicates a history of compulsive shopping, and confirmed that she started reporting bugs crawling on her after her surgery in July. She reoprts being bitten bu bugs, but he has never seen any. He expressed anger that she had a plan for suicide, as it was "selfish." She is going to groups and participating. On my assessment, she reports diarrhea which started last evening, with several liquid bowel movements and mild nausea/abdominal cramping, and decreased appetite this morning. She denies any other side effects. Mood has improved and she describes it as "pretty good," which she attributes to "not keeping everything to myself." It has been helpful for her to talk about her stress and anxiety, "just knowing that you're not the only person that's going through that." She has not been as focused on the bugs and infestation concerns, but talked to her about it last night and told him that even though she feels better, "everything isn't fixed, he can't just treat things the same, he has to go about things differently in the way he reacts to me." She shares long standing anxiety which has worsened in the past 4 months, chronic insomnia, and when she is struggling with these things, "he reacts with frustration, and then that turns to anger. He tells me to 'just stop, that's ridiculous, what's wrong with you?'" She had not shared her suicidal thoughts or plan to overdose with her prior to coming in to the ER, but reports she had been thinking about and planning "seriously" for suicide for 3 weeks prior to hospitalization. She has chronic back pain and has "accumulated pain meds over the years," and reports she has "hundreds" of opiate pain pills in a cupboard which she was planning on overdosing on. She is willing to allow her to bring them in for safe disposal. She also had a gun next to her bed, which he removed, although she is not sure how he secured it. She wants to work on "one thought at a time," and "not having the negative talk." She denies SI and feel safe here, but is concerned that she will relapse when she returns home due to strain in marriage, infestation concerns, and negative thinking. Physical Exam Psychiatric Orientation: alert and cooperative Apperance: appropriately dressed, appropriately groomed and appeared stated age Eye Contact: good eye contact Motor Behavior: steady gait and station and no abnormal motor movements Speech: normal rate/rhythm/volume of speech Affect: + depressed affect (but reactive, appropriate, less anxious) Mood: + anxious mood Improved from admission Thought Process: goal directed thought process Thought Content: + cognitive distortions Suicidal Thoughts: denies suicidal thoughts Homicidal Thoughts: denies homicidal thoughts Hallucinations: no auditory hallucinations and no visual hallucinations Cognition: recent memory grossly intact, remote memory grossly intact, attention grossly intact and language grossly intact Estimated Intelligence: consistent with education level Insight: good insight Judgement: good judgement Vital Signs (Past 24 Hours) Last Vital Signs Temp 36.8 C 12/02/18 06:00 Pulse 78 12/02/18 06:38 Resp 18 12/02/18 06:00 BP 161/81 H 12/02/18 06:38 Pulse Ox 100 11/29/18 19:31 Results & Data Current Inpatient Medications Current Inpatient Medications: Current Inpatient Medications Acetaminophen (Tylenol) 650 mg PO Q4H PRN PRN Reason: Headache or Minor Fever Stop: 12/29/18 19:16 Last Admin: 12/02/18 00:39 Dose: 650 mg Documented by: Acetaminophen/Butalbital/Caffeine (Fioricet) 1 tab PO Q8 PRN PRN Reason: Migraine Headache Stop: 12/30/18 18:10 Al Hydrox/Mg Hydrox/Simethicone (Maalox) 30 ml PO Q4H PRN PRN Reason: GI Upset Stop: 12/29/18 19:16 Bismuth Subsalicylate (Kaopectate) 15 ml PO PRN PRN PRN Reason: Loose Stool Stop: 12/29/18 19:16 Buspirone HCl (Buspar) 7.5 mg PO HS [facility] Stop: 12/29/18 21:59 Last Admin: 12/01/18 21:21 Dose: 7.5 mg Documented by: Buspirone HCl (Buspar) 5 mg PO QAM [facility] Stop: 12/30/18 08:59 Last Admin: 12/02/18 08:12 Dose: 5 mg Documented by: Estrogens Conjugated (Premarin) 0.3 mg PO QAM [facility] Stop: 12/30/18 08:59 Last Admin: 12/02/18 08:13 Dose: 0.3 mg Documented by: Gabapentin (Neurontin) [address] [facility] Stop: 12/29/18 21:59 Last Admin: 12/01/18 21:22 Dose: 300 mg Documented by: Hydroxychloroquine Sulfate (Plaquenil) [address] [facility] Stop: 12/29/18 21:59 Last Admin: 12/01/18 21:22 Dose: 400 mg Documented by: Hydroxyzine HCl (Vistaril) 50 mg PO HSZ PRN PRN Reason: Insomnia Stop: 12/29/18 19:16 Last Admin: 12/02/18 00:39 Dose: 50 mg Documented by: Hydroxyzine HCl (Vistaril) 25 mg PO Q4H PRN PRN Reason: Anxiety Stop: 12/29/18 19:16 Last Admin: 11/30/18 09:58 Dose: 25 mg Documented by: Hydroxyzine HCl (Vistaril) 10 mg PO QID PRN PRN Reason: Anxiety Stop: 12/29/18 19:21 Linaclotide (Linzess) 1 ea PO BID [facility] Stop: 12/31/18 20:59 Last Admin: 12/02/18 08:13 Dose: Not Given Documented by: Magnesium Hydroxide (Milk Of Magnesia) 30 ml PO DAILY PRN PRN Reason: Heartburn Stop: 12/29/18 19:16 Miscellaneous (Order Awaiting Action) 1 ea N/A QS [facility] Stop: 01/01/19 15:59 Sertraline HCl (Zoloft) 50 mg PO QAM [facility] Stop: 12/31/18 09:29 Last Admin: 12/02/18 08:14 Dose: 50 mg Documented by: Sodium Chloride ([place] Nasal) 1 - 2 sprays NA PRN PRN PRN Reason: Nasal Dryness/Congestion Stop: 12/29/18 19:16 Spironolactone (Aldactone) 25 mg PO BID17 [facility] Stop: 12/29/18 19:59 Last Admin: 12/02/18 08:12 Dose: 25 mg Documented by: Topiramate (Topamax) 75 mg PO BID [facility] Stop: 12/29/18 20:59 Last Admin: 12/02/18 08:13 Dose: 75 mg Documented by: Vitamin D (Vitamin D3) 1,000 units PO QAM [facility] Stop: 12/30/18 08:59 Last Admin: 12/02/18 08:14 Dose: 1,000 units Documented by: Mental Health & Subst Abuse Tx Psychiatrist Name of Psychiatrist: Denise Whyte Psychiatrist's Psychiatric Appointment Comment: [address] [place] [address] Therapist Name of Therapist: [facility] - Shasha Spangler Therapist's Date of Therapist Appointment: 12/06/18 Time of Therapist Appointment: 2pm. Therapy Appointment Comment: [address] [facility] [address], [place] [id number] [employer] Mixer Assembler Name of Food Mixer Assembler: None Post Discharge Appointments Primary Care Physician Name Of Family Doctor: [facility] Time of Appointment with PCP: follow up as needed. Provider Appointment Comment: [address], [place] [id number] CPT Code CPT Code 64542 (1) OCD (obsessive compulsive disorder) Obsessive-compulsive disorder type: unspecified Qualified Code(s): F42.9 - Obsessive-compulsive disorder, unspecified
[2018-12-02] MEDS ORDERED: KETOCONAZOLE 2% SHAMPOO 120 ML BTL EXT PRN (09:14)
[2018-12-02] MEDS ORDERED: DESTROY THIS MEDICATION ONE (14:15)
[2018-12-02] MEDS: HYDROXYCHLOROQUINE SULFATE 200 MG TAB PO SCH (21:44)
[2018-12-02] MEDS: GABAPENTIN 300 MG CAP PO SCH (21:44)
[2018-12-03] MEDS: SPIRONOLACTONE 25 MG TAB PO SCH ×2 (08:47→17:07)
[2018-12-03] MEDS: TOPIRAMATE 25 MG TAB PO SCH ×2 (08:50→23:02)
[2018-12-03] MEDS: ESTROGENS, CONJUGATED 0.3 MG TAB PO SCH (08:50)
[2018-12-03] MEDS: LINZESS 145 MCG PO SCH ×2 (08:50→23:02)
[2018-12-03] MEDS: SERTRALINE HCL 50 MG TABLET PO SCH (08:51)
[2018-12-03] MEDS: CHOLECALCIFEROL 1,000 UNITS TAB PO SCH (08:51)
[2018-12-03] MEDS ORDERED: BUTALBITAL/ACETAMIN/CAFFEINE TAB PO STA (16:50)
--- NOTE | 2018-12-03 17:21 | Psychiatric Progress Note ---
Date of Service December 03, 2018 Impression / Recommendations Impression 63-year-old female admitted voluntarily for suicidal ideation with a plan to overdose on hundreds of opiates which she stockpiled and obsessive thoughts about bug infestation in her home. The differential includes delusional parasitosis, OCD, depression with psychosis, or some combination of these. Sertraline initiated to target obsessive thoughts and low mood, but titration limited by GI side effects. Can consider use of an antipsychotic medication as augmentation if SSRI is insufficient. She has a meeting with her today, and is being referred for outpatient care. Although the patient today voices a belief that she was experiencing delusional parasitosis and that her conviction that she and her home were contaminated with insects resulted as a function of "[her] mind playing tricks on [her]," there is still a certain reticence when she makes this statement and she acknowledges that she is afraid that when she returns home she may again began to experience the sensation of bugs crawling on her. She is aware of that while her wishes to be supportive, he is not particularly understanding and tends to be impatient when she speaks of seeing or feeling. She does note that she has not experienced any similar sensations here in the hospital. She says that she has not felt the need to identify a "safe zone," and has not felt uncomfortable sitting in a posterior furniture on the unit. She and I both see this as a positive sign. I am recommending that, as her recovery from back surgery continues, she focus on finding activities and sources of support outside of the home. I am concerned that this 63-year-old woman tells me that she essentially has no friends and does not have a comfortable relationship with her . Neither of her children live nearby, and we discussed ways of making friends and confidants after longterm. We also talked about a tendency to have "morbid thoughts" when one has too much time on one's hands, and the patient tells me that she personally believes that this has been part of her problem. (1) Suicidal thoughts: 11/30 - Admitted to a locked inpatient behavioral health unit, on q15 minute safety checks - Encourage medication initiation/adjustments as indicated - Encourage participation in group and recreational therapies - Gather collateral information from outpatient providers - Suggest family meeting to involve outpatient supports in safety planning - Arrange appropriate aftercare 12/01 - Denies overt SI, but remains somewhat hopeless - No progress at this time with safety or discharge planning 12/02 - Family meeting with today - patient agrees to have him bring in her stash of opiate pain medications for safe disposal. Will also recommend that firearms be locked so that patient will not have access. - Work on safety plan - few supports/people she can talk to about stressors, home alone much of the time while working. 12/03 -The patient tells me that she had a loaded gun sitting next to her bed during this entire episode. She has that she does not know how to load a gun, but that it had been loaded for her by her as a source of protection against invaders. She also tells me that she has never entertained thoughts of shooting herself, in part because she is familiar with persons who end up badly mutilating themselves through self-inflicted gunshot wounds. -As above, she notes that her thoughts of suicide focused on overdosing with medications. However, today, she tells me that she is not having any further thoughts of harming herself. -She notes that her has agreed to bring in the "stash" of narcotic pain medications for disposal. -The patient also reports that she will ask her to remove the gun, or at least the gun's bullets from the side of her bed at home. (2) OCD (obsessive compulsive disorder): 11/30 - Will treat initially for an obsessive presentation, with possible obsessive compulsive disorder presentation - will be beneficial to gather collateral information from the patient's to determine if she may be minimizing other OCD tendencies to further clarify diagnosis - Differential includes anxiety NOS, psychosis, NOS, anxiety or depressive disorder with psychotic features, or condition better explained by a medical condition (surgical complications leading to paresthesia, etc.) - Reviewed recommendation for initiation of an SSRI to target obsessions and related anxiety. Risks and benefits reviewed. Will begin sertraline, starting tomorrow morning at 50mg daily - can titrate dose as tolerated - Will require collateral information from family, and suggesting family meeting prior to discharge to discuss aftercare and safety planning - Encourage participation in group and recreational programming - Hydroxyzine prn for acute anxiety 12/01 - Continue treatment as above, received initial dose of sertraline this morning - titrate as tolerated to target obsessive anxiety and depressed mood - Obtain collateral information from patient's , schedule family meeting to discuss discharge/safety planning - Continue to encourage participation in group and recreational programming 12/02 - Continue sertraline 50mg daily and monitor diarrhea. Continue titration once improves/resolves. - Continue participation in groups and therapy, working on stressors and healthy ways to cope. 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 However, it is noted that she denies any previous history of obsessive compulsive behaviors and I am not entirely certain that she would meet criteria for this disorder. Nevertheless, I agree with the treatment. We discussed increasing her dose of sertraline to 75 mg starting tomorrow. The patient notes that she had considerable nausea with her first dose, and is still feeling "may be a little funny in my abdomen," and so she would like to wait before increasing her dose of sertraline further, and I would agree with this plan. -The patient reports that in the past she has responded favorably to occasional use of lorazepam 0.5 mg when extremely anxious. She assesses her current problem is being primarily related to anxiety and notes that her thoughts of suicide occurred within the context of feeling overwhelmed by anxiety and frustration. I believe that it would be reasonable to provide the patient with a small supply of lorazepam 0.5 mg to be taken no more frequently than once a day for severe anxiety. 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 - Continue home dose of hydroxychloroquine 400mg qHS Inventory Assets Strengths: Willingness for treatment, support of Needs: Reality-testing of obsessive thoughts; initiation of appropriate medications to target symptoms Risk Factors Assessment Male: No : Yes Do You Have Access To A Gun?: Yes ( to secure) Health Problems: Yes Mental Health Diagnoses: No Substance Use Disorders: No Previous Attempt: No Previous Psychiatric Hospitalization: Yes ([facility] - 09/2000) Hopelessness: Yes Smoker: No Protective Factors Assessment 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 Pt had reported suicidal plan to overdose on medications, and had a stash of them at home, and was planning to write goodbye letters to family and divide her belongings when she decided to report her suicidal ideation to her pleater, who called [facility]. Chief Complaint "I thought I had bugs crawling on me. I got frustrated because nobody was believing me threatened suicide." Review of Systems Sleep Information Total Hours of Sleep: 6.25 Sleep Comments: pt. slept in the quiet room as her roommate snores loudly, medicated with two doses of hs vistaril for sleep aid. Meal Information Percent Meal Consumed - Breakfast: 75 Percent Meal Consumed - Lunch: 100 Percent Meal Consumed - Dinner: 75 Subjective Subjective Patient was seen & assessed and interval progress reviewed with treatment team. I met individually with the patient in order to assess her current mental status, evaluate her response to treatment, coordinate any necessary changes in the patient's treatment regimen with the patient, and address issues and concerns that may arise. The patient tells me that she recently had back surgery because of spinal stenosis. She was under anesthesia for what she was told was "a long time," and, subsequent to the surgery, she was also on various pain medications. 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 Nevertheless, she tells me that she became obsessed with the idea that she was contaminated by "bugs," and engaged in obsessive checking which included trips to the pleater's and other providers. She also engaged a pest control company to inspect her house, and when they told her that there is no evidence of any insect infestation she assumed that they had simply overlooked the infestation. Her , according the patient, made every effort to convince her that she was not contaminated by insects and, for example, when she would show him something that she believed was an insect on her person or nearby, he would photograph it and then zoom in on the photographed element to show her that, in fact, what she was calling a bug was actually a piece of fiber or something similar. Nevertheless, the patient declared her bedroom to be a "safe zone" and would not allow her to enter the bedroom. (They maintain separate bedrooms, but she would not even allow him to enter the bedroom because she was afraid that he would contaminated with bugs that he might be caring on person.) She also refused to sit on a pulsed and furniture in the house and, instead, set only on wooden chairs. She also is limiting the amount of time she would spend in her bedroom because she believed that if she was in there too long the insects would somehow seek her out and infest her "safe zone." She reports that she does not have a history of obsessive compulsive symptoms in the past. She tells me that she is aware of the symptoms of OCD, and she specifically denies a pattern of the obsessive washing, checking, placing items in order, or looking for numeric or alphabetic patterns. As the patient's frustration mounted, she tells me that she was annoyed that her and others did not believe her, and she was so troubled by the "bug infestation" that she eventually threatened suicide. She tells me that it was not an idle threat because, at the time, she felt that she was at her "wits end." Today, the patient tells me that she realizes that there was actually no real infestation and that her mind was "playing tricks on [her]." She also tells me that she has not experienced any of the "crawling" sensations here in the hospital that she had experienced at home, and she believes that somehow the fact that she was able to communicate the level of distress she was experiencing helped her to start to feel better. She is currently denying any suicidal thoughts. She tells me that she has been somewhat depressed since her surgery, but notes that for the most part she has had anxious distress and she believes that her anxiety has taken its toll on her overall mood. The patient says that she is not certain that sertraline has helped, but notes that she understands that it may help with her obsessive qualities. She accepts the term "delusional parasitosis," but prefers the concept of "tactile illusion" rather than "delusion," and I told her that I agreed with that. Today, the patient was also able to talk a little bit about her marriage. She explains that she was hospitalized on the behavioral health unit approximately 15 years ago when she learned that her was having an affair with another woman. Reportedly, the left the marriage in order to live with the other woman and the patient had which she referred to as "a mental breakdown" and came to the hospital. She says that she left the hospital feeling confident and secure. Eventually, the patient's left the other woman and asked the patient to forgive him. She notes that although both have tried hard, she has not fully overcome her sense of betrayal. She also notes that she and her do not have much in common, and they rarely socialize with other people. She has few or no friends. The patient describes her as "a tough police manager, which is what he is." They sometimes enjoy going out to eat, but otherwise seems to lead fairly separate lives. Nevertheless, the patient was able to look at the fact that her was extremely distressed when he heard that she was threatening suicide and has been quite solicitous since she arrived at the hospital. She has some trepidations about returning home and is afraid that the delusional parasitosis will rekindle. Physical Exam Psychiatric Orientation: oriented x 3 Apperance: appropriately groomed and appeared stated age Eye Contact: good eye contact Motor Behavior: no abnormal motor movements Speech: normal rate/rhythm/volume of speech Affect: euthymic affect "Better. I think I should be ready to go home may be over the weekend." Thought Process: goal directed thought process, linear/logical thought process and clear/coherent thought process Thought Content: reality based without delusions Suicidal Thoughts: denies suicidal thoughts, denies suicidal plan and denies suicidal intent Homicidal Thoughts: denies homicidal thoughts, denies homicidal plan and denies homicidal intent Hallucinations: + tactile hallucinations (The patient describes a recent history of tactile delusions secondary to surgery for spinal stenosis); no auditory hallucinations, no visual hallucinations and no gustatory hallucinations Cognition: recent memory grossly intact, remote memory grossly intact, attention grossly intact and language grossly intact Estimated Intelligence: + above average estimated intelligence Insight: good insight Judgement: good judgement Vital Signs (Past 24 Hours) Last Vital Signs Temp 36.8 C 12/03/18 06:00 Pulse 92 H 12/03/18 06:46 Resp 18 12/03/18 06:00 BP 144/78 H 12/03/18 06:46 Pulse Ox 100 11/29/18 19:31 Results & Data Current Inpatient Medications Current Inpatient Medications: Current Inpatient Medications Acetaminophen (Tylenol) 650 mg PO Q4H PRN PRN Reason: Headache or Minor Fever Stop: 12/29/18 19:16 Last Admin: 12/02/18 12:30 Dose: 650 mg Documented by: Acetaminophen/Butalbital/Caffeine (Fioricet) 1 tab PO Q8 PRN PRN Reason: Migraine Headache Stop: 12/30/18 18:10 Last Admin: 12/03/18 12:23 Dose: 1 tab Documented by: Acetaminophen/Butalbital/Caffeine (Fioricet) 1 tab PO NOW STA Stop: 12/03/18 16:51 Al Hydrox/Mg Hydrox/Simethicone (Maalox) 30 ml PO Q4H PRN PRN Reason: GI Upset Stop: 12/29/18 19:16 Bismuth Subsalicylate (Kaopectate) 15 ml PO PRN PRN PRN Reason: Loose Stool Stop: 12/29/18 19:16 Buspirone HCl (Buspar) 7.5 mg PO [facility] Stop: 12/29/18 21:59 Last Admin: 12/02/18 21:43 Dose: 7.5 mg Documented by: Buspirone HCl (Buspar) 5 mg PO QAM [facility] Stop: 12/30/18 08:59 Last Admin: 12/03/18 08:48 Dose: 5 mg Documented by: Estrogens Conjugated (Premarin) 0.3 mg PO QAM [facility] Stop: 12/30/18 08:59 Last Admin: 12/03/18 08:50 Dose: 0.3 mg Documented by: Gabapentin (Neurontin) 300 mg PO [facility] Stop: 12/29/18 21:59 Last Admin: 12/02/18 21:44 Dose: 300 mg Documented by: Hydroxychloroquine Sulfate (Plaquenil) 400 mg PO HS [facility]IFER Stop: 12/29/18 21:59 Last Admin: 12/02/18 21:44 Dose: 400 mg Documented by: Hydroxyzine HCl (Vistaril) 50 mg PO HSZ PRN PRN Reason: Insomnia Stop: 12/29/18 19:16 Last Admin: 12/03/18 00:36 Dose: 50 mg Documented by: Hydroxyzine HCl (Vistaril) 25 mg PO Q4H PRN PRN Reason: Anxiety Stop: 12/29/18 19:16 Last Admin: 11/30/18 09:58 Dose: 25 mg Documented by: Hydroxyzine HCl (Vistaril) 10 mg PO QID PRN PRN Reason: Anxiety Stop: 12/29/18 19:21 Ketoconazole (Nizoral 2%) 1 appln EXT UD PRN PRN Reason: Itching Stop: 01/02/19 09:13 Linaclotide (Linzess) 1 ea PO BID YENIFER Stop: 12/31/18 20:59 Last Admin: 12/03/18 08:50 Dose: Not Given Documented by: Magnesium Hydroxide (Milk Of Magnesia) 30 ml PO DAILY PRN PRN Reason: Heartburn Stop: 12/29/18 19:16 Sertraline HCl (Zoloft) 50 mg PO QAM YENIFER Stop: 12/31/18 09:29 Last Admin: 12/03/18 08:51 Dose: 50 mg Documented by: Sodium Chloride (Guion Nasal) 1 - 2 sprays NA PRN PRN PRN Reason: Nasal Dryness/Congestion Stop: 12/29/18 19:16 Spironolactone (Aldactone) 25 mg PO BID17 YENIFER Stop: 12/29/18 19:59 Last Admin: 12/03/18 08:47 Dose: 25 mg Documented by: Topiramate (Topamax) 75 mg PO BID YENIFER Stop: 12/29/18 20:59 Last Admin: 12/03/18 08:50 Dose: 75 mg Documented by: Vitamin D (Vitamin D3) 1,000 units PO QAM YENIFER Stop: 12/30/18 08:59 Last Admin: 12/03/18 08:51 Dose: 1,000 units Documented by: Mental Health & Subst Abuse Tx Psychiatrist Name of Psychiatrist: Denise Zeng Psychiatrist's Date of Appointment with Psychiatrist: 12/14/18 Time of Appointment with Psychiatrist: 9:00 a.m. Psychiatric Appointment Comment: [address] [place] [address] Therapist Name of Therapist: [facility] - Shasha Spangler Therapist's Date of Therapist Appointment: 12/06/18 Time of Therapist Appointment: 2pm. Therapy Appointment Comment: [address] [facility] [address], [place] [id number] Plant Puller Name of Plant Puller: None Post Discharge Appointments Primary Care Physician Name Of Family Doctor: [facility] Time of Appointment with PCP: follow up as needed. Provider Appointment Comment: [address] [facility], [place] [address] Contact Information Discharge Discharge Address: [address] [place] [address] [place] [id number] CPT Code CPT Code 24286 (1) OCD (obsessive compulsive disorder) Obsessive-compulsive disorder type: unspecified Qualified Code(s): F42.9 - Obsessive-compulsive disorder, unspecified
[2018-12-03] MEDS: LORazepam 0.5 MG TAB PO PRN (17:58)
[2018-12-03] MEDS: ACETAMINOPHEN 325 MG TAB PO PRN (22:59)
[2018-12-03] MEDS: GABAPENTIN 300 MG CAP PO SCH (23:00)
[2018-12-03] MEDS: HYDROXYCHLOROQUINE SULFATE 200 MG TAB PO SCH (23:00)
[2018-12-04] MEDS: ESTROGENS, CONJUGATED 0.3 MG TAB PO SCH (08:55)
[2018-12-04] MEDS: SPIRONOLACTONE 25 MG TAB PO SCH ×2 (08:55→17:28)
[2018-12-04] MEDS: TOPIRAMATE 25 MG TAB PO SCH ×2 (08:55→22:07)
[2018-12-04] MEDS: SERTRALINE HCL 50 MG TABLET PO SCH (08:55)
[2018-12-04] MEDS: CHOLECALCIFEROL 1,000 UNITS TAB PO SCH (08:55)
[2018-12-04] MEDS: LINZESS 145 MCG PO SCH ×2 (08:56→22:25)
--- NOTE | 2018-12-04 10:43 | Psychiatric Progress Note ---
Date of Service December 04, 2018 Impression / Recommendations Impression 63-year-old female admitted voluntarily for suicidal ideation with a plan to overdose on hundreds of opiates which she stockpiled and obsessive thoughts about bug infestation in her home. The differential includes delusional parasitosis, OCD, depression with psychosis, or some combination of these. Sertraline initiated to target obsessive thoughts and low mood, but titration limited by GI side effects. Can consider use of an antipsychotic medication as augmentation if SSRI is insufficient. She had a meeting with her today, and felt it was helpful to work on their communication issues, and is being referred for outpatient care. She has some insight into the fact that her belief she and her home were infested with insects was not based in reality, but fears that the sensations and delusional thoughts will return when she is discharged and goes back to her house. She is working on ways to cope, and her discharge safety plan. She is aware of that while her wishes to be supportive, he is not particularly understanding, and unfortunately she has few other supports. (1) Suicidal thoughts: 11/30 - Admitted to a locked inpatient behavioral health unit, on q15 minute safety checks - Encourage medication initiation/adjustments as indicated - Encourage participation in group and recreational therapies - Gather collateral information from outpatient providers - Suggest family meeting to involve outpatient supports in safety planning - Arrange appropriate aftercare 12/01 - Denies overt SI, but remains somewhat hopeless - No progress at this time with safety or discharge planning 12/02 - Family meeting with today - patient agrees to have him bring in her stash of opiate pain medications for safe disposal. Will also recommend that firearms be locked so that patient will not have access. - Work on safety plan - few supports/people she can talk to about stressors, home alone much of the time while working. 12/03 -The patient tells me that she had a loaded gun sitting next to her bed during this entire episode. She has that she does not know how to load a gun, but that it had been loaded for her by her as a source of protection against invaders. She also tells me that she has never entertained thoughts of shooting herself, in part because she is familiar with persons who end up badly mutilating themselves through self-inflicted gunshot wounds. -As above, she notes that her thoughts of suicide focused on overdosing with medications. However, today, she tells me that she is not having any further thoughts of harming herself. -She notes that her has agreed to bring in the "stash" of narcotic pain medications for disposal. -The patient also reports that she will ask her to remove the gun, or at least the gun's bullets from the side of her bed at home. 12/04 -Has been confirmed that the guns were secured, and brought in the patient's narcotic medications for disposal. (2) OCD (obsessive compulsive disorder): 11/30 - Will treat initially for an obsessive presentation, with possible obsessive compulsive disorder presentation - will be beneficial to gather collateral information from the patient's to determine if she may be minimizing other OCD tendencies to further clarify diagnosis - Differential includes anxiety NOS, psychosis, NOS, anxiety or depressive disorder with psychotic features, or condition better explained by a medical condition (surgical complications leading to paresthesia, etc.) - Reviewed recommendation for initiation of an SSRI to target obsessions and related anxiety. Risks and benefits reviewed. Will begin sertraline, starting tomorrow morning at 50mg daily - can titrate dose as tolerated - Will require collateral information from family, and suggesting family meeting prior to discharge to discuss aftercare and safety planning - Encourage participation in group and recreational programming - Hydroxyzine prn for acute anxiety 12/01 - Continue treatment as above, received initial dose of sertraline this morning - titrate as tolerated to target obsessive anxiety and depressed mood - Obtain collateral information from patient's , schedule family meeting to discuss discharge/safety planning - Continue to encourage participation in group and recreational programming 12/02 - Continue sertraline 50mg daily and monitor diarrhea. Continue titration once improves/resolves. - Continue participation in groups and therapy, working on stressors and healthy ways to cope. 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 However, it is noted that she denies any previous history of obsessive compulsive behaviors and I am not entirely certain that she would meet criteria for this disorder. Nevertheless, I agree with the treatment. We discussed increasing her dose of sertraline to 75 mg starting tomorrow. The patient notes that she had considerable nausea with her first dose, and is still feeling "may be a little funny in my abdomen," and so she would like to wait before increasing her dose of sertraline further, and I would agree with this plan. -The patient reports that in the past she has responded favorably to occasional use of lorazepam 0.5 mg when extremely anxious. She assesses her current problem is being primarily related to anxiety and notes that her thoughts of suicide occurred within the context of feeling overwhelmed by anxiety and frustration. I believe that it would be reasonable to provide the patient with a small supply of lorazepam 0.5 mg to be taken no more frequently than once a day for severe anxiety. 12/04 -Continue sertraline 50 mg daily, as patient still reports mild abdominal discomfort, although it is improving. -Explored ways to increase her supports, activities outside of the home, coping skills, and safety planning. 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 - Continue home dose of hydroxychloroquine 400mg qHS Inventory Assets Strengths: Willingness for treatment, support of Needs: Reality-testing of obsessive thoughts; initiation of appropriate medications to target symptoms Risk Factors Assessment Male: No : Yes Do You Have Access To A Gun?: Yes ( to secure) Health Problems: Yes Mental Health Diagnoses: No Substance Use Disorders: No Previous Attempt: No Previous Psychiatric Hospitalization: Yes ([facility] - 09/2000) Hopelessness: Yes Smoker: No Protective Factors Assessment Congregation Beliefs: Yes : Yes Responsible for Young Children: No Employed: No (Retired from [employer]) Stable Relationships: Yes Supportive Family: Yes Interval History Identifying Information LAURA MONTOYA is a 63-year-old F who currently lives in [place] with her , has a history of depression and anxiety, but no outpatient mental health treatment, who was admitted on 11/29/18 18:07 on a 201 voluntary commitment for suicidal ideation and obsessive thoughts about "bugs" which she believed infiltrated her home following a surgery in 07/2018. Pt had reported suicidal plan to overdose on medications, and had a stash of them at home, and was planning to write goodbye letters to family and divide her belongings when she decided to report her suicidal ideation to her flight paramedic, who called [facility]. Chief Complaint "I still think there might be bugs, but I'm not sure". Review of Systems Notes Diarrhea has resolved, but still has mild turning in stomach in the morning. No nausea or vomiting. Sleep Information Total Hours of Sleep: 5 Sleep Comments: received 2 doses of hs vistaril for sleep aid, initially able to sleep in her own room then her roommates snoring awoke her and she then slept the rest of the night in the group room. Meal Information Percent Meal Consumed - Breakfast: 75 Percent Meal Consumed - Lunch: 100 Percent Meal Consumed - Dinner: 75 Subjective Subjective Patient was seen & assessed and interval progress reviewed with nursing and social work. Staff report she had a difficult night due to her roommate snoring, and slept in the quiet room. She got prns for sleep and anxiety. On my assessment she reports mood is improved and she feels safe here. She thinks her meeting with her went well and that the social services was able to help them communicate better. She is worried that she will be isolated at home, and that the stress from the strain in her marriage and other issues will cause symptoms to return. She states she is becoming less convinced that there is an insect infestation in her home, but still thinks there is a 20% chance that there are bugs there, and is concerned how she will manage this when she returns. Physical Exam Psychiatric Orientation: alert, oriented x 3 and cooperative Apperance: appropriately dressed, appropriately groomed and appeared stated age Eye Contact: good eye contact Motor Behavior: steady gait and station and no abnormal motor movements Speech: normal rate/rhythm/volume of speech Affect: + anxious affect But reactive, smiles appropriately. Mood: + anxious mood Improved from admission. Thought Process: goal directed thought process Thought Content: + delusions (Of bug infestation at home, despite evidence to the contrary and 's reassurance there are no bugs) Suicidal Thoughts: denies suicidal thoughts Homicidal Thoughts: denies homicidal thoughts Hallucinations: no auditory hallucinations and no visual hallucinations Cognition: recent memory grossly intact, attention grossly intact and language grossly intact Insight: + fair insight Judgement: + fair judgement Vital Signs (Past 24 Hours) Last Vital Signs Temp 36.8 C 12/04/18 06:37 Pulse 89 12/04/18 06:38 Resp 18 12/04/18 06:37 BP 132/86 12/04/18 06:38 Pulse Ox 100 11/29/18 19:31 Results & Data Laboratory Results Laboratory Results - last 24 hr 12/03/18 21:40 Stl C. diff Tox B Gene Negative Cdiff Gene Current Inpatient Medications Current Inpatient Medications: Current Inpatient Medications Acetaminophen (Tylenol) 650 mg PO Q4H PRN PRN Reason: Headache or Minor Fever Stop: 12/29/18 19:16 Last Admin: 12/03/18 22:59 Dose: 650 mg Documented by: Acetaminophen/Butalbital/Caffeine (Fioricet) 1 tab PO Q8 PRN PRN Reason: Migraine Headache Stop: 12/30/18 18:10 Last Admin: 12/03/18 12:23 Dose: 1 tab Documented by: Al Hydrox/Mg Hydrox/Simethicone (Maalox) 30 ml PO Q4H PRN PRN Reason: GI Upset Stop: 12/29/18 19:16 Bismuth Subsalicylate (Kaopectate) 15 ml PO PRN PRN PRN Reason: Loose Stool Stop: 12/29/18 19:16 Buspirone HCl (Buspar) 7.5 mg PO [facility] Stop: 12/29/18 21:59 Last Admin: 12/03/18 23:01 Dose: 7.5 mg Documented by: [facility]) [facility] [place]: 12/30/18 08:59 Last Admin: 12/04/18 08:55 Dose: 5 mg Documented by: Estrogens Conjugated (Premarin) 0.[facility] Stop: 12/30/18 08:59 Last Admin: 12/04/18 08:55 Dose: 0.3 mg Documented by: Gabapentin (Neurontin) 300 mg PO [facility] Stop: 12/29/18 21:59 Last Admin: 12/03/18 23:00 Dose: 300 mg Documented by: Hydroxychloroquine Sulfate (Plaquenil) 400 mg PO [facility] Stop: 12/29/18 21:59 Last Admin: 12/03/18 23:00 Dose: 400 mg Documented by: Hydroxyzine HCl (Vistaril) 50 mg PO HSZ PRN PRN Reason: Insomnia Stop: 12/29/18 19:16 Last Admin: 12/04/18 02:59 Dose: 50 mg Documented by: Hydroxyzine HCl (Vistaril) 25 mg PO Q4H PRN PRN Reason: Anxiety Stop: 12/29/18 19:16 Last Admin: 11/30/18 09:58 Dose: 25 mg Documented by: Hydroxyzine HCl (Vistaril) 10 mg PO QID PRN PRN Reason: Anxiety Stop: 12/29/18 19:21 Ketoconazole (Nizoral 2%) 1 appln EXT UD PRN PRN Reason: Itching Stop: 01/02/19 09:13 Linaclotide (Linzess) 1 ea PO BID [facility] Stop: 12/31/18 20:59 Last Admin: 12/04/18 08:56 Dose: 1 ea Documented by: Lorazepam (Ativan) 0.5 mg PO DAILY PRN PRN Reason: Anxiety Stop: 01/02/19 17:20 Last Admin: 12/03/18 17:58 Dose: 0.5 mg Documented by: Magnesium Hydroxide (Milk Of Magnesia) 30 ml PO DAILY PRN PRN Reason: Heartburn Stop: 12/29/18 19:16 Sertraline HCl (Zoloft) 50 mg PO QAM [facility] Stop: 12/31/18 09:29 Last Admin: 12/04/18 08:55 Dose: 50 mg Documented by: Sodium Chloride ([place] Nasal) 1 - 2 sprays NA PRN PRN PRN Reason: Nasal Dryness/Congestion Stop: 12/29/18 19:16 Spironolactone (Aldactone) 25 mg PO BID17 YENIFER Stop: 12/29/18 19:59 Last Admin: 12/04/18 08:55 Dose: 25 mg Documented by: Topiramate (Topamax) 75 mg PO BID [facility] Stop: 12/29/18 20:59 Last Admin: 12/04/18 08:55 Dose: 75 mg Documented by: Vitamin D (Vitamin D3) 1,000 units PO QAM [facility] Stop: 12/30/18 08:59 Last Admin: 12/04/18 08:55 Dose: 1,000 units Documented by: Mental Health & Subst Abuse Tx Psychiatrist Name of Psychiatrist: Denise Zeng Psychiatrist's Date of Appointment with Psychiatrist: 12/14/18 Time of Appointment with Psychiatrist: 9:00 a.m. Psychiatric Appointment Comment: [id number] [facility] [place] [address] Therapist Name of Therapist: [facility] - Shasha Spangler Therapist's Date of Therapist Appointment: 12/06/18 Time of Therapist Appointment: 2pm. Therapy Appointment Comment: [address] [facility], [place] [address], [place] [id number] Oil Dipper Name of Oil Dipper: None Post Discharge Appointments Primary Care Physician Name Of Family Doctor: [facility] Time of Appointment with PCP: follow up as needed. Provider Appointment Comment: [address] , [place] [id number] Contact Information Discharge Discharge Address: [address] [place] [address] [place] [id number] CPT Code CPT Code 57034 (1) OCD (obsessive compulsive disorder) Obsessive-compulsive disorder type: unspecified Qualified Code(s): F42.9 - Obsessive-compulsive disorder, unspecified
[2018-12-04] MEDS: HYDROXYCHLOROQUINE SULFATE 200 MG TAB PO SCH (22:08)
[2018-12-04] MEDS: GABAPENTIN 300 MG CAP PO SCH (22:08)
[2018-12-05] MEDS: SERTRALINE HCL 50 MG TABLET PO SCH (08:49)
[2018-12-05] MEDS: CHOLECALCIFEROL 1,000 UNITS TAB PO SCH (08:49)
[2018-12-05] MEDS: SPIRONOLACTONE 25 MG TAB PO SCH (08:49)
[2018-12-05] MEDS: ESTROGENS, CONJUGATED 0.3 MG TAB PO SCH (08:50)
[2018-12-05] MEDS: LINZESS 145 MCG PO SCH (08:50)
[2018-12-05] MEDS: TOPIRAMATE 25 MG TAB PO SCH (08:50)
--- NOTE | 2018-12-05 09:41 | Discharge Summary ---
Date of Service December 05, 2018 History of Present Illness Poonam Can is a 63-year-old female admitted voluntarily for inpatient psychiatric treatment on 11/29/18 due to suicidal ideation with plan to overdose on medications. Pt reports having had spinal surgery in 07/2018 which eventually led to a belief that bugs were crawling under her incisional dressing. Pt had become overwhelmed by this anxiety/belief and felt the bugs were infesting her home and spreading. She had reportedly called an cottage cheese maker who found no evidence of bugs. She had also presented to her family doctor and a shoe repairer about the reports as well, again with no evidence to confirm her suspicions. While at the shoe repairer for a follow-up visit, the patient had reportedly endorsed suicidality with plan to overdose. Pt has verbalized a plan to start writing letters to her family. Pt was admitted to [facility] in 09/2018 for depression and suicidality without a specific plan. She has had limited outpatient psychiatric follow-up since that time. Pt was cooperative with psychiatric evaluation, and appears mildly anxious. She states, "after my surgery, I thought there were bugs crawling under my incisional dressing, I thought they were crawling on me." When asked to describe the sensation, the patient is unable to do so - indicating it was more of a belief than true tactile hallucinations. Pt reports at most a "burning sensation" that would occur at times. Pt states, "I believed they were spreading through my house, I had my home checked for bugs, I underwent lice treatment. Pt states she spoke with her PCP, who did not find evidence of any insect bites on her skin. She followed-up with a shoe repairer who agreed with lack of evidence for bug infestation. Pt sought out an cottage cheese maker, who also was unable to determine the presence of bugs in the home. Pt states, this investigation was "temporarily reassuring" but then only let to thoughts of "well, he didn't look very closely, what if he didn't do a good job." Pt states that this belief has continued since her surgery in July. She reports having "safe spaces" in her home - specifically her bedroom and bathroom, which she does not allow her in. Pt states she is rather convinced there are bugs on her furniture, and therefore sits only on a wooden chair in the living room to eat dinner. Pt states she has become "obsessed, I blew it up - turned it into an obsession" - "I have clean areas, my -free zones." Pt states her has been rather frustrated with her behavior, which has affected her mood greatly. She states, "he kept telling me I was crazy, and to just stop, he was saying that HE couldn't keep living like this." Pt states she noticed the onset of suicidal ideation about 3 weeks prior to this admission. In that time, she had planned to use medications to overdose. Pt states, "I was just needing to figure out if I wanted to do it at home or go to a hotel or something." Pt states she already had access to medications she was planning to use. She states she had planned to write letters to her children and sisters. She was also planning to go through her jewelry and label to whom each piece would go. She states she told her shoe repairer all of these things, "I don't know, I think I just had the opportunity and needed someone to share my thoughts with." Pt does admit to a previous inpatient psychiatric admission in 09/2000, for suicidal ideation and depression in the context of learning of her 's affair. Pt states she did not have a plan at that time, and was started on bupropion. Pt states her current prescription for buspirone is prescribed by her PCP. She feels her symptoms have been too overwhelming to accurately tell if the medication has been beneficial. Pt reports periods of depressive or anxiety symptoms, but states, "nothing steady." Pt denies HI, SIB, A/V hallucinations, paranoia, radha/hypomania, other symptoms more suggestive of a bipolar presentation, PTSD, eating disorder, and other specific psychiatric symptoms. Physical Exam Psychiatric Orientation: alert and cooperative Apperance: appropriately dressed, appropriately groomed and appeared stated age Eye Contact: good eye contact Motor Behavior: steady gait and station and no abnormal motor movements Speech: normal rate/rhythm/volume of speech Affect: euthymic affect (mildly anxious) and mood congruent with affect Mood: + anxious mood Thought Process: goal directed thought process Thought Content: reality based without delusions (although reports chance that there are bugs in her home, is not convinced) Suicidal Thoughts: denies suicidal thoughts Homicidal Thoughts: denies homicidal thoughts Hallucinations: no auditory hallucinations, no visual hallucinations and no tactile hallucinations Cognition: recent memory grossly intact, attention grossly intact and language grossly intact Insight: + fair insight Judgement: + fair judgement Vital Signs (Past 24 Hours) Last Vital Signs Temp 36.9 C 12/05/18 06:40 Pulse 82 12/05/18 06:41 Resp 16 12/05/18 06:40 BP 122/86 12/05/18 06:41 Pulse Ox 100 11/29/18 19:31 Principal Diagnosis Anxiety not otherwise specified Rule out OCD Delusional parasitosis Psychiatric Data The patient was on our unit for 6 days. She was started on sertraline to target mood and anxiety symptoms, and titration did not progress past 50 mg daily due to diarrhea, which was resolving. She also utilized lorazepam 0.5 mg and hydroxyzine 50 mg as needed for anxiety and sleep respectively, and reported they were helpful. She processed her recent stressors, including marital strain and recovery from back surgery. Her was contacted for collateral information and confirmed that there was no evidence of insect infestation in the home and that she was "irrational." She denied hallucinations and concerns for insect infestation while in the hospital, and her concerns about infestation at home lessened, but remained present. By the time of discharge, she reported about a 20% chance that there is an infestation at home, which was decreased from admission. She did have some insight that these concerns may not be reality based, and worked on ways to reality test and better cope with stress at home. She had a family meeting with her during which they discussed strain in their relationship and different ways of communicating. He expressed anger that she had been planning to kill herself, it was able to identify that underneath the anger he was feeling fear. They were able to talk about ways they could spend more time together and strengthen their relationship, even though they have few interests in common. They agreed to consider marital therapy. Her agreed to bring in her extra medications/narcotic pain pills she had stockpiled it was planning to use to end her life. He also confirmed that the firearms in the home would be secured so the patient will not have access to them. The patient attended and participated in groups and therapy, socialized with her peers, and reported gradual improvement in mood and anxiety. She was referred for outpatient psychiatric care and therapy. Day of Discharge Assessment Staff report the patient has been attending and participating in groups, socializing with peers, and has been pleasant and appropriate in her interactions with others. She has been working on ways to cope with the stress of returning home, including working on plans to get out of the house more and around other people, as well as working on better communication with her . She is taking medications as prescribed and reported improved mood, anxiety, and less focused on concerns about insect infestation. She has been consistently denying suicidal ideation, and has not engaged in self-injurious behavior. She is eating and sleeping well, and taking medications as prescribed. On my assessment, she reports her mood is "better, but a little anxious." She is worried about how she will feel with returning home, and if her symptoms will come back. She is able to review her safety plan and thinks she plans to implement to help her cope better with stress, including getting out of the house on a daily basis, spending time outside and with other people, and is planning to look into volunteer options. We discussed her differential diagnosis and that there are components of both anxiety with OCD symptoms and delusional parasitosis, and the recommendations for therapy and ongoing medication management to address this. We also reviewed the importance of increasing her outpatient supports, and her plans for the next several days, as she feels it will be helpful for her to stay busy and get out of the house regularly. She denies any safety concerns with discharge, and feels safe going home. Transition of Care Transition Of Care Record: was reviewed with the patient Advance Directives Advance Directives Information Provided: Yes Advance Directives: No Mental Health Advance Directive: No Advance Directives on File: No Living Will: No Power of Special Delivery Mail Carrier: No Advance Directives Reason:: Declines as Mental Health Visit. Risk Factors Assessment Risk factors were mitigated by admission to the inpatient unit, adjusting medications to target mood, anxiety, and psychotic symptoms, providing education about her diagnoses and the recommended treatment, involving her in groups and therapy, working on healthy coping skills and a discharge safety plan, having her bring in her stash of narcotic pain medications for safe disposal, and ensuring that had secured firearms in the home so that she would not have access, if family meeting with her with recommendations for marital counseling, and referring her for outpatient therapy and psychiatric care. She is reporting improved mood, anxiety, and psychosis, and resolution of SI. She is requesting discharge and denies acute safety concerns, and as she is no longer at imminent risk of suicide and can be managed as an outpatient at this time. Male: No : Yes Do You Have Access To A Gun?: No ( confirmed they have been secured) Health Problems: Yes Mental Health Diagnoses: No Substance Use Disorders: No Previous Attempt: No Previous Psychiatric Hospitalization: Yes ([facility] - 09/2000) Hopelessness: Yes Smoker: No Protective Factors Assessment Bahai Beliefs: Yes : Yes Responsible for Young Children: No Employed: No (Retired from [facility]) Stable Relationships: Yes Supportive Family: Yes Tobacco Cessation at Discharge Tobacco Cessation Medication Prescribed at Discharge: Not Applicable/Non-Smoker Total Time Total Time Spent: Greater Than 30 Minutes Total Time Includes: Examination of the patient, Discharge Planning and Medication Reconciliation Discharge Data Consultations 11/29/18 18:21 ED Decision to Admit Stat Lab Results 11/29/18 11/29/18 11/29/18 13:56 13:56 14:43 WBC 3.19 L RBC 4.26 Hgb 13.3 Hct 37.2 MCV 87.3 MCH 31.2 MCHC 35.8 RDW Std Deviation 43.9 RDW Coeff of Dustin 13.9 Plt Count 197 MPV 11.4 H Immature Gran % (Auto) 0.0 Neut % (Auto) 56.0 Lymph % (Auto) 25.1 [place] % (Auto) 13.5 Eos % (Auto) 3.8 Baso % (Auto) 1.6 Immature Gran # (Auto) 0.00 Neut # (Auto) 1.79 Lymph # (Auto) 0.80 L [place] # (Auto) 0.43 Eos # (Auto) 0.12 Baso # (Auto) 0.05 Sodium Potassium Chloride Carbon Dioxide Anion Gap BUN Creatinine Est Cr Clr Drug Dosing Est GFR ( Amer) Est GFR (Non-Af Amer) BUN/Creatinine Ratio Glucose Calcium Total Bilirubin AST ALT Alkaline Phosphatase Total Protein Albumin Globulin Albumin/Globulin Ratio TSH Urine Color Yellow Urine Appearance Clear Urine pH 5.5 Ur Specific [place] 1.011 Urine Protein Negative Urine Glucose (UA) Negative Urine Ketones Negative Urine Blood Negative Urine Nitrite Negative Urine Bilirubin Negative Urine Urobilinogen Negative Ur Leukocyte Esterase Trace H Urine WBC (Auto) 1-5 Urine RBC (Auto) 0-4 U Hyaline Cast (Auto) 1-5 U Epithel Cells (Auto) >30 H Urine Bacteria (Auto) Negative Stl C. diff Tox B Gene Salicylates Urine Opiates Screen Neg Ur Methadone, Qual Neg Acetaminophen Urine Barbiturates Neg Ur Phencyclidine (PCP) Neg U Amphetamin/Meth Scrn Neg MDMA (Ecstasy) Screen Neg U Benzodiazepines Scrn Neg Ur Cocaine Metabolite Neg U Marijuana (THC) Screen Neg Ethyl Alcohol mg/dL 11/29/18 11/29/18 11/29/18 14:43 14:43 14:43 WBC RBC Hgb Hct MCV MCH MCHC RDW Std Deviation RDW Coeff of Dustin Plt Count MPV Immature Gran % (Auto) Neut % (Auto) Lymph % (Auto) [place] % (Auto) Eos % (Auto) Baso % (Auto) Immature Gran # (Auto) Neut # (Auto) Lymph # (Auto) [place] # (Auto) Eos # (Auto) Baso # (Auto) Sodium 138 Potassium 3.9 Chloride 108 H Carbon Dioxide 22 Anion Gap 8.0 BUN 10 Creatinine 0.71 Est Cr Clr Drug Dosing 80.3 Est GFR ( Amer) 106.5 Est GFR (Non-Af Amer) 91.9 BUN/Creatinine Ratio 14.8 Glucose 76 Calcium 8.9 Total Bilirubin 0.5 AST 24 ALT 29 Alkaline Phosphatase 82 Total Protein 7.2 Albumin 3.7 Globulin 3.5 Albumin/Globulin Ratio 1.1 TSH 1.330 Urine Color Urine Appearance Urine pH Ur Specific [place] Urine Protein Urine Glucose (UA) Urine Ketones Urine Blood Urine Nitrite Urine Bilirubin Urine Urobilinogen Ur Leukocyte Esterase Urine WBC (Auto) Urine RBC (Auto) U Hyaline Cast (Auto) U Epithel Cells (Auto) Urine Bacteria (Auto) Stl C. diff Tox B Gene Salicylates < 1.7 L Urine Opiates Screen Ur Methadone, Qual Acetaminophen < 2 L Urine Barbiturates Ur Phencyclidine (PCP) U Amphetamin/Meth Scrn MDMA (Ecstasy) Screen U Benzodiazepines Scrn Ur Cocaine Metabolite U Marijuana (THC) Screen Ethyl Alcohol mg/dL < 3.0 12/03/18 21:40 WBC RBC Hgb Hct MCV MCH MCHC RDW Std Deviation RDW Coeff of Dustin Plt Count MPV Immature Gran % (Auto) Neut % (Auto) Lymph % (Auto) [place] % (Auto) Eos % (Auto) Baso % (Auto) Immature Gran # (Auto) Neut # (Auto) Lymph # (Auto) [place] # (Auto) Eos # (Auto) Baso # (Auto) Sodium Potassium Chloride Carbon Dioxide Anion Gap BUN Creatinine Est Cr Clr Drug Dosing Est GFR ( Amer) Est GFR (Non-Af Amer) BUN/Creatinine Ratio Glucose Calcium Total Bilirubin AST ALT Alkaline Phosphatase Total Protein Albumin Globulin Albumin/Globulin Ratio TSH Urine Color Urine Appearance Urine pH Ur Specific [place] Urine Protein Urine Glucose (UA) Urine Ketones Urine Blood Urine Nitrite Urine Bilirubin Urine Urobilinogen Ur Leukocyte Esterase Urine WBC (Auto) Urine RBC (Auto) U Hyaline Cast (Auto) U Epithel Cells (Auto) Urine Bacteria (Auto) Stl C. diff Tox B Gene Negative Cdiff Gene Salicylates Urine Opiates Screen Ur Methadone, Qual Acetaminophen Urine Barbiturates Ur Phencyclidine (PCP) U Amphetamin/Meth Scrn MDMA (Ecstasy) Screen U Benzodiazepines Scrn Ur Cocaine Metabolite U Marijuana (THC) Screen Ethyl Alcohol mg/dL Hospital Course (1) Anxiety disorder, unspecified: 11/30 - Will treat initially for an obsessive presentation, with possible obsessive compulsive disorder presentation - will be beneficial to gather collateral information from the patient's to determine if she may be minimizing other OCD tendencies to further clarify diagnosis - Differential includes anxiety NOS, psychosis, NOS, anxiety or depressive disorder with psychotic features, or condition better explained by a medical condition (surgical complications leading to paresthesia, etc.) - Reviewed recommendation for initiation of an SSRI to target obsessions and related anxiety. Risks and benefits reviewed. Will begin sertraline, starting tomorrow morning at 50mg daily - can titrate dose as tolerated - Will require collateral information from family, and suggesting family meeting prior to discharge to discuss aftercare and safety planning - Encourage participation in group and recreational programming - Hydroxyzine prn for acute anxiety 12/01 - Continue treatment as above, received initial dose of sertraline this morning - titrate as tolerated to target obsessive anxiety and depressed mood - Obtain collateral information from patient's , schedule family meeting to discuss discharge/safety planning - Continue to encourage participation in group and recreational programming 12/02 - Continue sertraline 50mg daily and monitor diarrhea. Continue titration once improves/resolves. - Continue participation in groups and therapy, working on stressors and healthy ways to cope. 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 However, it is noted that she denies any previous history of obsessive compulsive behaviors and I am not entirely certain that she would meet criteria for this disorder. Nevertheless, I agree with the treatment. We discussed increasing her dose of sertraline to 75 mg starting tomorrow. The patient notes that she had considerable nausea with her first dose, and is still feeling "may be a little funny in my abdomen," and so she would like to wait before increasing her dose of sertraline further, and I would agree with this plan. -The patient reports that in the past she has responded favorably to occasional use of lorazepam 0.5 mg when extremely anxious. She assesses her current problem is being primarily related to anxiety and notes that her thoughts of suicide occurred within the context of feeling overwhelmed by anxiety and frustration. I believe that it would be reasonable to provide the patient with a small supply of lorazepam 0.5 mg to be taken no more frequently than once a day for severe anxiety. 12/04 -Continue sertraline 50 mg daily, as patient still reports mild abdominal discomfort, although it is improving. -Explored ways to increase her supports, activities outside of the home, coping skills, and safety planning. 12/05 - Differential includes OCD and anxiety due to psychosis. - Continue sertraline 50mg daily and titrate as an outpatient as tolerated. GI side effects resolving. - Patient requesting lorazepam for severe anxiety, got once here and tolerated well. Reviewed risks and side effects, including sedation, tolerance, addiction, cognitive impairment, and unsteadiness; reviewed not to take with alcohol or other centrally acting medications and not to drive or operate machinery after taking. Reviewed that this would be for short-term treatment only while waiting for SSRI to take effect. Patient expressed understanding. Reviewed PDMP; patient filled 10-day supply of Lorazepam over 1 month ago. - Continue hydroxyzine for sleep. 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 Delusions have lessened and she will need to continue to work on this in therapy as an outpatient. - Consider treatment with an antipsychotic if treating anxiety, mood and engagement in therapy are not sufficient. (3) Suicidal thoughts: 11/30 - Admitted to a locked inpatient behavioral health unit, on q15 minute safety checks - Encourage medication initiation/adjustments as indicated - Encourage participation in group and recreational therapies - Gather collateral information from outpatient providers - Suggest family meeting to involve outpatient supports in safety planning - Arrange appropriate aftercare 12/01 - Denies overt SI, but remains somewhat hopeless - No progress at this time with safety or discharge planning 12/02 - Family meeting with today - patient agrees to have him bring in her stash of opiate pain medications for safe disposal. Will also recommend that firearms be locked so that patient will not have access. - Work on safety plan - few supports/people she can talk to about stressors, home alone much of the time while working. 12/03 -The patient tells me that she had a loaded gun sitting next to her bed during this entire episode. She has that she does not know how to load a gun, but that it had been loaded for her by her as a source of protection against invaders. She also tells me that she has never entertained thoughts of shooting herself, in part because she is familiar with persons who end up badly mutilating themselves through self-inflicted gunshot wounds. -As above, she notes that her thoughts of suicide focused on overdosing with medications. However, today, she tells me that she is not having any further thoughts of harming herself. -She notes that her has agreed to bring in the "stash" of narcotic pain medications for disposal. -The patient also reports that she will ask her to remove the gun, or at least the gun's bullets from the side of her bed at home. 12/04 -Has been confirmed that the guns were secured, and brought in the patient's narcotic medications for disposal. 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 Psychiatric Appointment Comment: [address] [place] [address] Therapist Name of Therapist: [facility] - Shasha Spangler Therapist's Date of Therapist Appointment: 12/06/18 Time of Therapist Appointment: 2pm. Therapy Appointment Comment: [address] [facility], [place] [address], [place] [address] [employer] Salesperson Name of [employer] Salesperson: None Post Discharge Appointments Primary Care Physician Name Of Family Doctor: Lucie Pandya [facility] Time of Appointment with PCP: follow up as needed. Provider Appointment Comment: [address] [facility], [place] [address] Smoking Cessation Counseling Tobacco Cessation Medication Prescribed at Discharge: Not Applicable/Non-Smoker Contact Information Discharge Discharge Address: [address] [place] [id number] Discharge Plan Discharge Items Patient Disposition: Home - Self-Care Reason For Visit: PSYCHOSIS NOS Discharge Diagnosis: Delusional parasitosis Anxiety not otherwise specified, rule out OCD Discharge Goals: Decrease discomfort, Improve disease control and Therapeutic intervention Activity: Per 'Additional Instructions' section Non-emergency contact: Psychiatrist and Therapist Call non-emergency contact if: you have any medication questions and your symptoms worsen Follow-up/Referrals: Carie Pandya, [Primary Care Provider] - Diet: Regular Addtl Provider Instructions: SPECIAL CARE INSTRUCTIONS: 1. Follow through with your scheduled aftercare appointments. If unable to keep an appointment, please call to reschedule. 2. Take your medication only as prescribed. Medication should not be changed or stopped without the approval of your doctor. In the event of worsening symptoms or concerns about side effects, contact your doctor immediately. 3. Utilize new healthy coping skills, anger management skills, and stress management skills learned during your hospitalization. Journal feelings and process them with a support person. Identify stressors or situations that may result in relapse, deterioration or inappropriate behaviors and develop a plan to deal with those issues. 4. If your coping skills are ineffective and you are in crisis, contact your outpatient providers for direction. If unable to reach your providers, please call the CAN HELP LINE AT or go to the closest Emergency Room. 5. Avoid alcohol and un-prescribed drugs. 6. You have been provided with the Mental Health Advance Directives Pamphlet for your review. AFTERCARE APPOINTMENTS: * Please call your insurance company prior to your scheduled appointment to confirm your aftercare providers are covered. Take your insurance information to your appointments. WHO TO CALL AND WHEN: Medical Emergencies: For questions or emergencies related to your hospital stay, please contact the Inpatient Behavioral Health Unit at [phone]. A excavator operator is on-call 17/11 for the Behavioral Health Unit for emergencies At any time you feel your situation is an emergency, you may also call 911 immediately. Your Doctors Instructions noted above were prepared by provider Monica Gil MD. Prescriptions: New buspirone 5 mg Tablet 7.5 mg PO HS Qty: 45 RF: 0 hydroxyzine HCl 50 mg tablet 50 mg PO HSZ PRN (Reason: insomnia) Qty: 30 RF: 0 lorazepam 0.5 mg Tablet 0.5 mg PO DAILY PRN (Reason: anxiety) Qty: 10 RF: 0 sertraline 50 mg Tablet 50 mg PO QAM Qty: 30 RF: 0 Continued buspirone 10 mg Tablet 5 mg PO QAM RF: 0 gabapentin 300 mg Capsule 300 mg PO HS RF: 0 hydroxychloroquine 200 mg Tablet 400 mg PO HS RF: 0 ketoconazole 2 % Shampoo 1 % TOPICAL 3XWK RF: 0 Premarin 0.3 mg Tablet 0.3 mg PO DAILY RF: 0 spironolactone 25 mg Tablet 25 mg PO BID RF: 0 Linzess 145 mcg Capsule 145 mcg PO DAILY PRN (Reason: Constipation) RF: 0 topiramate 25 mg Tablet 75 mg PO BID RF: 0 cholecalciferol (vitamin D3) [Vitamin D3] 1,000 unit Capsule 1,000 unit PO DAILY RF: 0 chromium picolinate 200 mcg Tablet 200 mcg PO DAILY RF: 0 Hair,Skin and Nails 1 tab PO DAILY RF: 0 acetaminophen [Tylenol Extra Strength] 500 mg Tablet 1,000 mg PO Q6 PRN (Reason: Pain) RF: 0 snxettcofs-mtisgyemsfcoy-pphq [Fioricet] 50-300-40 mg Capsule 1 - 2 cap PO Q8 PRN (Reason: Migraine Headache) RF: 0 Discontinued buspirone 10 mg Tablet 10 mg PO QPM RF: 0 hydroxyzine HCl 10 mg Tablet 10 mg PO QID PRN (Reason: Anxiety) RF: 0 Stand-Alone Forms: [facility] Discharge Orders: Discharge Order (Routine); Ordered 12/05/18 Ordered By: Monica Gil Admission Data Admit Date/Time: 11/29/18 18:07 Attending Provider: Monica Gil Admit Provider: Yanet Croona Primary Care Provider: Carie Pandya Other Providers: Yanet Corona Service: Psychiatry Other Interventions: PSY Interdisciplinary Discharge Planning Last Done: 12/05/18 09:45 Pending Studies at Discharge: No
[2018-12-05] MEDS: LORazepam 0.5 MG TAB PO PRN (10:46)
== END 2018-12-05 11:34 | disposition home or self-care (01) | DRG 880 ==
LOC: ED 13:35 → 3S 18:07

== ENCOUNTER 2021-01-20 12:31 | Inpatient (IN) ==
--- NOTE | 2021-01-20 12:43 | Emergency Department Note ---
Impression & Plan COVID-19, Chest pain, Weakness, Cough ED Provider Note Provider: Dago Hopkins MD DATE OF SERVICE: 01/20/2021 CHIEF COMPLAINT: Short of breath week, cough, thoracic back pain HISTORY OF PRESENT ILLNESS: Patient is a 62-year-old lady history of gastroparesis and lupus on Plaquenil reporting 12 days of Covid symptoms. Reports he tested positive for Covid 6 days ago at the [facility] walk-in clinic. Patient evidently was started on amoxicillin from that evaluation as well which she is taken 3 days of at this point. Her is also ill but she states he is doing better. She states that she feels like she is having worsening shortness of breath and cough with some upper back pain. Patient denies any fever today. Patient states that she is feeling more short of breath try to get around her house and very weak. States she is not eating or drinking very much and being maybe 1 time a day. Reports significant diarrhea but no nausea at this time or abdominal pain. Minimal anterior chest pains reported. Patient has not taken any Tylenol today but has over the last several days. REVIEW OF SYSTEMS: A total of 10 review of systems was obtained and negative except as stated above in the HPI. PAST MEDICAL HISTORY: As noted above MEDICATIONS: Reviewed home medications SOCIAL HISTORY: , lives at home, non-smoker PHYSICAL EXAM: GENERAL: alert and oriented in no acute distress on stretcher but very fatigued appearing Head: normocephalic and atraumatic EYES: No injection, discharge or icterus. NECK: Trachea midline. LUNGS: Airway patent. No retractions. Breath sounds clear with good air entry bilaterally. HEART: Regular rate and rhythm. Mild ABDOMEN: Soft and non-tender, without guarding or rebound. SKIN: Acyanotic, warm, dry, without rashes EXTREMITIES: Without swelling, tenderness or deformity NEUROLOGICAL: No focal deficits. No aphasia. No facial droop or slurred speech. Ambulatory. EK bpm normal sinus rhythm. No PVC or PAC. QTc 497. No acute ST segment elevation or depression. CONTINUOUS CARDIAC MONITORING: was ordered and showed a heart rate of 90s-100s bpm in normal sinus rhythm to sinus tachycardia Patient's laboratory studies and imaging reviewed. Differential includes Infection, dehydration, metabolic abnormality, hypo/ hyperglycemia, electrolyte disturbance, anemia, hypoxia, cardiac sources, intracerebral event, toxicologic, neurologic, as well as other pathologies. IMPRESSION/MEDICAL DECISION MAKING: Epic records indicate a positive Covid test. Symptoms unfortunately seem consistent with that although somewhat worsening recently. Patient not hypoxic at rest. I have a low and acute patient at this time for PE additionally she is history of a contrast allergy. She is noted to be borderline tachycardic. She is afebrile today. Patient with some diffuse pains around her chest with his musculoskeletal from her cough. This pain is somewhat reproducible on exam. Benign abdomen. Question some dehydration given her decreased intake and minimal urination as well as the diarrhea. Given some fluids, Pepcid, and Tessalon Perles to start with. Chest x-ray per my review and radiology with evidence of nonspecific viral inflammatory changes in the lungs. Mild leukopenia noted consistent with Covid infection. No anemia. Borderline hyponatremia of 135. Borderline hypokalemia 3.5. Creatinine of 0.69 with BUN of 16 does not show significant JARED. Slight AST elevation again consistent with Covid infection. CRP is elevated 6.49 again likely in the infectious state. No evidence of pancreatitis at this time. Troponin noted at 0.015 no abnormal and barely detectable. Discussed with the patient findings. Again lower suspicion for acute PE but given her significant inability to tolerate oral intake with her general illness and significant shortness of breath trying to ambulate at home, in shared decision-making we agree that it is unwise for the patient to go home at this point. Will discuss with the hospitalist for further observation. DIAGNOSIS: COVID-19, chest pain, cough, weakness DISPOSITION: Hospitalist will evaluate Patient was agreeable with this plan. Past Med/Surg History Medical History (Updated 01/20/21 @ 14:36 by Dago Hopkins M.D.) Constipation GERD (gastroesophageal reflux disease) No pertinent family history Obesity Osteoarthritis Surgical History History of lumbar fusion Family History Other No pertinent family history Social History Smoking Status: Never smoker Hx Substance Use: No Preferred Language: Ukrainian Communication Ability: Effective Visual Impairment: No Limitations Hearing Ability: Normal Carding Doubler Required: No Beliefs That Will Affect Care: Judaism (Jew) marital status: Current Living Situation: Family current occupational status: unemployed Feels Safe at Home: Yes Assistive Devices: None Allergies Allergies Allergy/AdvReac Type Severity Reaction Status Date / Time Iodinated Contrast Media Allergy Unknown 0 Verified 01/20/21 14:04 Sulfa (Sulfonamide Allergy Unknown Verified 01/20/21 14:04 Antibiotics) alcohol AdvReac Severe Redness of Unverified 01/20/21 14:06 [From Mastisol Adhesive] Skin, Rash, Itching gum mastic AdvReac Severe Redness of Unverified 01/20/21 14:06 [From Mastisol Adhesive] Skin, Rash, Itching methyl salicylate AdvReac Severe Redness of Unverified 01/20/21 14:06 [From Mastisol Adhesive] Skin, Rash, Itching storax AdvReac Severe Redness of Unverified 01/20/21 14:06 [From Mastisol Adhesive] Skin, Rash, Itching Home Meds Home Medications Medication Instructions Recorded Confirmed acetaminophen 500 mg tablet 1,000 mg PO Q6 PRN 11/29/18 01/20/21 (Tylenol Extra Strength) bhnwqtgegh-laqsbzguamghn-ehhxylbd 1 - 2 cap PO Q8 PRN 11/29/18 01/20/21 50 mg-300 mg-40 mg capsule (Fioricet) conjugated estrogens 0.3 mg tablet 0.3 mg PO DAILY 11/29/18 01/20/21 (Premarin) gabapentin 300 mg capsule 300 mg PO HS 11/29/18 01/20/21 hydroxychloroquine 200 mg tablet 400 mg PO HS 11/29/18 01/20/21 ketoconazole 2 % shampoo 1 % TOPICAL 3XWK 11/29/18 01/20/21 linaclotide 145 mcg capsule 145 mcg PO DAILY PRN 11/29/18 01/20/21 (Linzess) spironolactone 25 mg tablet 25 mg PO BID 11/29/18 01/20/21 topiramate 25 mg tablet (Topamax) 75 mg PO BID 11/29/18 01/20/21 amoxicillin 875 mg-potassium 1 tab PO Q12 01/20/21 01/20/21 clavulanate 125 mg tablet (Augmentin) fremanezumab-vfrm 225 mg/1.5 mL 225 mg SUBCUT MONTHLY 01/20/21 01/20/21 subcutaneous syringe (Ajovy Syringe) Previous Rx's Medication Instructions Recorded hydroxyzine HCl 50 mg tablet 50 mg PO HSZ PRN #30 tab 12/05/18 lorazepam 0.5 mg tablet 0.5 mg PO DAILY PRN #10 tab 12/05/18 Results & Data (ED) Vital Signs Vital Signs - 24 hr 01/20/21 12:37 01/20/21 12:43 01/20/21 13:00 Temperature 37.1 C Temperature Source Oral Pulse Rate 104 H 96 H 89 Pulse Rate from SpO2 Sensor 104 H 90 Respiratory Rate 15 20 27 H Respiratory Effort / Characteristics Non-Labored Respiratory Depth Normal Respiratory Pattern Regular Blood Pressure 145/90 H 145/90 H 131/109 H Blood Pressure Mean 108 108 116 Pulse Oximetry 97 97 96 Oxygen Delivery Method Room Air Sepsis Recent Fever Within 48 Hours No Sepsis New/Unexplained Change in Mental Status No Sepsis Action Taken by Nursing No Action Required 01/20/21 13:30 01/20/21 14:00 Temperature Temperature Source Pulse Rate 86 88 Pulse Rate from SpO2 Sensor 86 88 Respiratory Rate 24 32 H Respiratory Effort / Characteristics Respiratory Depth Respiratory Pattern Blood Pressure 121/70 148/78 H Blood Pressure Mean 87 101 Pulse Oximetry 97 99 Oxygen Delivery Method Sepsis Recent Fever Within 48 Hours Sepsis New/Unexplained Change in Mental Status Sepsis Action Taken by Nursing Laboratory Data Result diagrams: 01/20/21 13:20 01/20/21 13:20 Lab Results 01/20/21 01/20/21 01/20/21 Range/Units 13:20 13:20 13:20 WBC 4.33 L (4.8-10.8) K/uL RBC 4.45 (4.2-5.4) M/uL Hgb 14.6 (12.0-16.0) g/dL Hct 40.9 (37-47) % MCV 91.9 (80-100) fL MCH 32.8 (25-34) pg MCHC 35.7 (32-36) g/dL RDW Std Deviation 40.9 (36.4-46.3) fL RDW Coeff of Dustin 12.0 (11.5-14.5) % Plt Count 177 (130-400) K/uL MPV 10.4 (7.4-10.4) fL Immature Gran % (Auto) 0.0 % Neut % (Auto) 75.0 % Lymph % (Auto) 9.7 % Union % (Auto) 13.9 % Eos % (Auto) 0.9 % Baso % (Auto) 0.5 % Neut # (Auto) 3.25 (1.4-6.5) K/uL Lymph # (Auto) 0.42 L (1.2-3.4) K/uL Union # (Auto) 0.60 H (0.11-0.59) K/uL Eos # (Auto) 0.04 (0-0.5) K/uL Baso # (Auto) 0.02 (0-0.2) K/uL Immature Gran # (Auto) 0.00 (0.00-0.02) K/uL PT 10.6 (9.0-12.0) Seconds INR 1.0 (0.9-1.1) Sodium 135 L (136-145) mmol/L Potassium 3.5 (3.5-5.1) mmol/L Chloride 100 (98-107) mmol/L Carbon Dioxide 23 (21-32) mmol/L Anion Gap 12.0 H (3-11) BUN 16 (7-18) mg/dl Creatinine 0.69 (0.6-1.2) mg/dl Est Cr Clr Drug Dosing 73.9 ml/min Est GFR ( Amer) 107.4 ml/min Est GFR (Non-Af Amer) 92.6 ml/min BUN/Creatinine Ratio 22.4 H (10-20) Glucose 70 (70-99) mg/dl Lactate (0.4-2.0) mmol/L Calcium 9.1 (8.5-10.1) mg/dl Total Bilirubin 0.8 (0.2-1) mg/dl AST 54 H (15-37) U/L ALT 56 (12-78) U/L Alkaline Phosphatase 129 H (45-117) U/L Total Creatine Kinase 181 (26-192) U/L Troponin I 0.015 (0-0.045) ng/ml C-Reactive Protein 6.49 H (0-0.29) mg/dl Total Protein 8.3 H (6.4-8.2) gm/dl Albumin 3.4 (3.4-5.0) gm/dl Globulin 4.9 H (2.5-4.0) gm/dl Albumin/Globulin Ratio 0.7 L (0.9-2) Lipase 253 (73-393) U/L 01/20/21 Range/Units 13:20 WBC (4.8-10.8) K/uL RBC (4.2-5.4) M/uL Hgb (12.0-16.0) g/dL Hct (37-47) % MCV (80-100) fL MCH (25-34) pg MCHC (32-36) g/dL RDW Std Deviation (36.4-46.3) fL RDW Coeff of Dustin (11.5-14.5) % Plt Count (130-400) K/uL MPV (7.4-10.4) fL Immature Gran % (Auto) % Neut % (Auto) % Lymph % (Auto) % Union % (Auto) % Eos % (Auto) % Baso % (Auto) % Neut # (Auto) (1.4-6.5) K/uL Lymph # (Auto) (1.2-3.4) K/uL Union # (Auto) (0.11-0.59) K/uL Eos # (Auto) (0-0.5) K/uL Baso # (Auto) (0-0.2) K/uL Immature Gran # (Auto) (0.00-0.02) K/uL PT (9.0-12.0) Seconds INR (0.9-1.1) Sodium (136-145) mmol/L Potassium (3.5-5.1) mmol/L Chloride (98-107) mmol/L Carbon Dioxide (21-32) mmol/L Anion Gap (3-11) BUN (7-18) mg/dl Creatinine (0.6-1.2) mg/dl Est Cr Clr Drug Dosing ml/min Est GFR ( Amer) ml/min Est GFR (Non-Af Amer) ml/min BUN/Creatinine Ratio (10-20) Glucose (70-99) mg/dl Lactate 1.3 (0.4-2.0) mmol/L Calcium (8.5-10.1) mg/dl Total Bilirubin (0.2-1) mg/dl AST (15-37) U/L ALT (12-78) U/L Alkaline Phosphatase (45-117) U/L Total Creatine Kinase (26-192) U/L Troponin I (0-0.045) ng/ml C-Reactive Protein (0-0.29) mg/dl Total Protein (6.4-8.2) gm/dl Albumin (3.4-5.0) gm/dl Globulin (2.5-4.0) gm/dl Albumin/Globulin Ratio (0.9-2) Lipase (73-393) U/L Administered Medications Discontinued Medications Benzonatate (Benzonatate 100 Mg Capsule) 100 mg PO NOW ONE Stop: 01/20/21 12:55 Last Admin: 01/20/21 13:21 Dose: 100 mg Documented by: [id number] Sodium Chloride (Nss 1000ml) 1,000 mls @ 999 mls/hr IV .Q1H1M STA Stop: 01/20/21 13:52 Last Infusion: 01/20/21 14:27 Dose: 0 mls/hr Documented by: [id number] Admin: 01/20/21 13:21 Dose: 999 mls/hr Documented by: [id number] Famotidine (Pepcid 20mg Iv Push) 20 mg in 5 mls @ 2.5 mls/min IV NOW STA Stop: 01/20/21 12:55 Last Admin: 01/20/21 13:21 Dose: 2.5 mls/min Documented by: [id number] Imaging Data Radiologist's Impression: Chest X-Ray 01/20/21 12:52 SINGLE VIEW CHEST CLINICAL HISTORY: Cough. Covid. FINDINGS: An AP, portable, upright chest radiograph is compared to study dated 05/10/2015. The cardiomediastinal silhouette is unremarkable. Patchy airspace consolidation is seen at both lung bases. No large pleural effusion or pneumothorax is identified. The bony thorax is grossly intact. Cholecystectomy clips are seen in the right upper quadrant. IMPRESSION: Mild patchy airspace consolidation is seen at both lung bases and consistent with the reported history of a viral pneumonia. Radiographic follow- up to resolution is recommended. ACT 112: Negative or not required by law. Electronically signed by: Alonzo Cyr M.D. 01/20/2021 1:57 PM Discharge Plan Visit Data Chief Complaint: Shortness of Breath/Dyspnea Stated Complaint: COVID + ED Provider: Dago Hopkins Discharge Problem: COVID-19, Chest pain, Weakness, Cough Patient Disposition: Being Evaluated by Hospitalist Forms Stand Alone Forms: [facility] Prescriptions Prescriptions: No Action gabapentin 300 mg Capsule 300 mg PO HS RF: 0 hydroxychloroquine 200 mg Tablet 400 mg PO HS RF: 0 ketoconazole 2 % Shampoo 1 % TOPICAL 3XWK RF: 0 Premarin 0.3 mg Tablet 0.3 mg PO DAILY RF: 0 spironolactone 25 mg Tablet 25 mg PO BID RF: 0 Linzess 145 mcg Capsule 145 mcg PO DAILY PRN (Reason: Constipation) RF: 0 topiramate [Topamax] 25 mg Tablet 75 mg PO BID RF: 0 acetaminophen [Tylenol Extra Strength] 500 mg Tablet 1,000 mg PO Q6 PRN (Reason: Pain) RF: 0 ahyjwgofwt-lhdsxdbzozkoa-ilci [Fioricet] 50-300-40 mg Capsule 1 - 2 cap PO Q8 PRN (Reason: Migraine Headache) RF: 0 hydroxyzine HCl 50 mg tablet 50 mg PO HSZ PRN (Reason: insomnia) Qty: 30 RF: 0 lorazepam 0.5 mg Tablet 0.5 mg PO DAILY PRN (Reason: anxiety) Qty: 10 RF: 0 amoxicillin-pot clavulanate [Augmentin] 875-125 mg tablet 1 tab PO Q12 RF: 0 Ajovy Syringe 225 mg/1.5 mL syringe 225 mg SUBCUT MONTHLY RF: 0 Referrals Referrals: Carie Pandya DO [Primary Care Provider] - Discharge Problem: Chest pain Qualifiers: Chest pain type: chest pain on breathing Qualified Code(s): R07.1 - Chest pain on breathing
[2021-01-20] MEDS ORDERED: SODIUM CHLORIDE 0.9% 1000ML 1,000 ML IV STA (12:52)
[2021-01-20] MEDS ORDERED: BENZONATATE 100 MG CAPSULE PO ONE (12:54)
[2021-01-20] MEDS ORDERED: FAMOTIDINE 20MG IV PUSH 20 MG/5 ML SYR IV STA (12:54)
[2021-01-20 13:41] LABS: Hematocrit (blood only) 40.9 % (37-47); Hemoglobin 14.6 g/dL (12.0-16.0); Mean Corpuscular Hemoglobin 32.8 pg (25-34); Mean Corpuscular Hgb Conc 35.7 g/dL (32-36); Mean Corpuscular Volume 91.9 fL (80-100); Mean Platelet Volume 10.4 fL (7.4-10.4); Platelet Count 177 K/uL (130-400); RDW Standard Deviation 40.9 fL (36.4-46.3); Red Blood Count 4.45 M/uL (4.2-5.4); White Blood Count 4.33 K/uL (4.8-10.8)
[2021-01-20 13:57] LABS: Prothrombin Time 10.6 Seconds (9.0-12.0)
[2021-01-20 13:58] LABS: Basophils # (auto) 0.02 K/uL (0-0.2); Basophils % (auto) 0.5 %; Eosinophils # (auto) 0.04 K/uL (0-0.5); Eosinophils % (auto) 0.9 %; Lymphocytes # (auto) 0.42 K/uL (1.2-3.4); Lymphocytes % (auto) 9.7 %; Monocytes % (auto) 13.9 %; Neutrophils # (auto) 3.25 K/uL (1.4-6.5)
--- NOTE | 2021-01-20 13:58 | XRay Report ---
SINGLE VIEW CHEST CLINICAL HISTORY: Cough. Covid. FINDINGS: An AP, portable, upright chest radiograph is compared to study dated 05/10/2015. The cardiom ediastinal silhouette is unremarkable. Patchy airspace consolidation is seen at both lung bases. No l arge pleural effusion or pneumothorax is identified. The bony thorax is grossly intact. Cholecystecto my clips are seen in the right upper quadrant. IMPRESSION: Mild patchy airspace consolidation is seen at both lung bases and consistent with the rep orted history of a viral pneumonia. Radiographic follow-up to resolution is recommended. ACT 112: Negative or not required by law. Electronically signed by: Alonzo Cyr M.D. 01/20/2021 1:57 PM
[2021-01-20 14:04] LABS: Albumin Level 3.4 gm/dl (3.4-5.0); BUN Creatinine Ratio 22.4 (10-20); C Reactive Protein 6.49 mg/dl (0-0.29); Calcium 9.1 mg/dl (8.5-10.1); Creatinine Clr Calc Pharmacy 73.9 ml/min; Est GFR (African American) 107.4 ml/min; Est GFR (Non-African American) 92.6 ml/min; Potassium 3.5 mmol/L (3.5-5.1)
[2021-01-20 14:08] LABS: Albumin Globulin Ratio 0.7 (0.9-2); Bilirubin,Total 0.8 mg/dl (0.2-1); Globulin 4.9 gm/dl (2.5-4.0); Total Protein 8.3 gm/dl (6.4-8.2); Troponin I 0.015 ng/ml (0-0.045)
[2021-01-20] MEDS ORDERED: ALBUTEROL HFA 8 GM INHALER INH ONE (14:30)
[2021-01-20] MEDS ORDERED: KETOROLAC TROMETHAMINE 15 MG/ML VIAL IV ONE (14:30)
[2021-01-20] MEDS ORDERED: HYDROcodone/HOMATROPINE SYRUP 5MG/1.5MG 5ML UDP PO STA (14:34)
--- NOTE | 2021-01-20 15:55 | History & Physical Report ---
Date of Service January 20, 2021 Assessment & Plan (1) Pneumonia due to COVID-19 virus: Plan: No indication for treatment as patient is oxygenating 97% on room air. Frequent cough so will offer codeine cough syrup. Encouraged to prone as able. Continue supportive care efforts occluding Imodium for diarrhea as needed. Will give additional 1 bag of IV fluids with 1 L given in the ER already as patient appears to be dehydrated continue to support her until tolerating p.o. reliably. If she drops her oxygen saturation and becomes more hypoxic, steroids could be considered. This was discussed with her. She is out of the window of time where remdesivir would be helpful. (2) Poor appetite: Plan: 2/2 covid, additional IVF given overnight. Antiemetics as needed (3) Diarrhea: Plan: Cont supportive care with Imodium PRN and IVF. Oral rehdration efforts with Powerade and other such liquids will be helpful. (4) SLE (systemic lupus erythematosus): Plan: Cutaneous lupus history, currently on Plaquenil which is held. Last dose was last evening. (5) Complement 2 deficiency: Plan: Per history (6) Gastroparesis: Plan: Supportive care, recommend small frequent meals. Zofran as needed. (7) Migraines: Plan: Has a history of migraines using aSQ injectable monthly called Samuel. Currently does not have a headache. Utilizes Fioricet as an abortive. This is ordered as needed. (8) DVT prophylaxis: Plan: Lovenox Full code Disposition-to home when feeling better and tolerating p.o. Nicolle Muller DO [facility] Hospitalist History of Present Illness Chief Complaint: cough, nausea Primary Care Provider: Carie Pandya DO This is a 65 yo F with a PMH of SLE on Plaquenil, complement 2 deficiency, migraine headaches, gastroparesis and other medical problems listed below who presents with ongoing cough, generalized weakness and poor appetite for the past 12 days. Initially had runny nose and cough starting 12 days ago. No fever but endorsed chills and body sweats where she has soaked through her clothing on 4 separate occasions. Also has poor appetite and is really not tried to eat much. Was tested at [facility] drive-through testing and found to be positive on 01/15/2021. Was started on Augmentin course 4 days ago for concern for pneumonia. In addition to poor appetite and nausea, patient endorses almost daily diarrhea for the past 10 days. No blood in stool. No abdominal pain or vomiting. Also now experiencing some shortness of breath in association with coughing as well as intermittent chest pain and back pain, worse with coughing. Did not receive Covid vaccine. also Covid positive. Patient feeling so weak due to lack of intake at home that she decided to come to ED for further care. No lightheadedness, headache, wheezing, hemoptysis, dysuria or constipation. Allergies Allergy/AdvReac Type Severity Reaction Status Date / Time Iodinated Contrast Media Allergy Unknown 0 Verified 01/20/21 14:04 Sulfa (Sulfonamide Allergy Unknown Verified 01/20/21 14:04 Antibiotics) alcohol AdvReac Severe Redness of Unverified 01/20/21 14:06 [From Mastisol Adhesive] Skin, Rash, Itching gum mastic AdvReac Severe Redness of Unverified 01/20/21 14:06 [From Mastisol Adhesive] Skin, Rash, Itching methyl salicylate AdvReac Severe Redness of Unverified 01/20/21 14:06 [From Mastisol Adhesive] Skin, Rash, Itching storax AdvReac Severe Redness of Unverified 01/20/21 14:06 [From Mastisol Adhesive] Skin, Rash, Itching Home Medications Medication Instructions Recorded Confirmed Type acetaminophen 500 mg tablet 1,000 mg PO Q6 PRN 11/29/18 01/20/21 History (Tylenol Extra Strength) nguinbyizw-nyllzsbtislxx-bhdqvyku 1 - 2 cap PO Q8 PRN 11/29/18 01/20/21 History 50 mg-300 mg-40 mg capsule (Fioricet) conjugated estrogens 0.3 mg tablet 0.3 mg PO DAILY 11/29/18 01/20/21 History (Premarin) gabapentin 300 mg capsule 300 mg PO HS 11/29/18 01/20/21 History hydroxychloroquine 200 mg tablet 400 mg PO HS 11/29/18 01/20/21 History ketoconazole 2 % shampoo 1 % TOPICAL 3XWK 11/29/18 01/20/21 History linaclotide 145 mcg capsule 145 mcg PO DAILY PRN 11/29/18 01/20/21 History (Linzess) spironolactone 25 mg tablet 25 mg PO BID 11/29/18 01/20/21 History topiramate 25 mg tablet (Topamax) 75 mg PO BID 11/29/18 01/20/21 History hydroxyzine HCl 50 mg tablet 50 mg PO HSZ PRN #30 tab 12/05/18 01/20/21 Rx lorazepam 0.5 mg tablet 0.5 mg PO DAILY PRN #10 tab 12/05/18 01/20/21 Rx amoxicillin 875 mg-potassium 1 tab PO Q12 01/20/21 01/20/21 History clavulanate 125 mg tablet (Augmentin) docusate sodium 100 mg capsule 100 mg PO BID PRN 01/20/21 01/20/21 History (Colace) fremanezumab-vfrm 225 mg/1.5 mL 225 mg SUBCUT MONTHLY 01/20/21 01/20/21 History subcutaneous syringe (Ajovy Syringe) rimegepant 75 mg disintegrating 75 mg PO UD 01/20/21 01/20/21 History tablet (Nurtec ODT) sumatriptan succinate 50 mg tablet 50 mg PO UD 01/20/21 01/20/21 History (Imitrex) Past Med/Surg History Medical History Complement 2 deficiency Constipation GERD (gastroesophageal reflux disease) Migraines No pertinent family history Obesity Osteoarthritis SLE (systemic lupus erythematosus) Surgical History History of lumbar fusion Family History Other Breast cancer Heart disease Social History Smoking Status: Never smoker Hx Alcohol Use: Yes Alcohol type: wine Alcohol Intake Frequency: 2-4 x/Month Hx Substance Use: No Preferred Language: Niuean Communication Ability: Effective Visual Impairment: No Limitations Hearing Ability: Normal Biological Photographer Required: No Beliefs That Will Affect Care: Religion (Druze) marital status: Current Living Situation: Family current occupational status: unemployed Feels Safe at Home: Yes Assistive Devices: None Review of Systems Review of Systems: At least ten systems reviewed and negative except as noted in the HPI. Physical Exam Physical Exam: CONSTITUTIONAL: WNWD, vitals as above, generally ill- appearing, NAD, generally weak EYES: normal conjunctivae, no scleral icterus ENT: external ear and nose normal NECK: trachea midline, no lymphadenopathy, normal thyroid RESPIRATORY: crackles heard througout both lungs concentrated at the bases, pt coughs frequently with taking deep breaths. +rales - wheezes, normal respiratory effort CARDIOVASCULAR: regular rate and rhythm, S1 and 2 heard without murmurs, gallops or rubs, no JVD, no peripheral edema CHEST: inspection of chest was normal GASTROINTESTINAL: soft, nontender, ND, no guarding MUSCULOSKELETAL: no gross focal deficits, generalized weakness noted, head is normocephalic and atraumatic, neck supple, normal palpation of chest wall without tenderness SKIN: warm and dry, erythematous scaly rash in medial browline on face NEUROLOGIC: CN 2-12 grossly intact, normal cognition, normal speech, no tremor PSYCHIATRIC: alert cooperative and oriented to person, place and time. Results & Data Results & Data ([facility]) Vital Signs (Past 12 Hours) Vital Signs Temp Pulse Resp BP Pulse Ox 01/20/21 15:00 86 27 H 126/91 97 01/20/21 14:30 99 H 28 H 153/92 H 96 01/20/21 14:00 88 32 H 148/78 H 99 01/20/21 13:30 86 24 121/70 97 01/20/21 13:00 89 27 H 131/109 H 96 01/20/21 12:43 37.1 C 96 H 20 145/90 H 97 01/20/21 12:37 104 H 15 145/90 H 97 Laboratory Results Short CBC 01/20/21 Range/Units 13:20 WBC 4.33 L (4.8-10.8) K/uL Hgb 14.6 (12.0-16.0) g/dL Hct 40.9 (37-47) % Plt Count 177 (130-400) K/uL BMP 01/20/21 13:20 Sodium 135 L Potassium 3.5 Chloride 100 Carbon Dioxide 23 BUN 16 Creatinine 0.69 Glucose 70 Calcium 9.1 Cardiac Enzymes 01/20/21 Range/Units 13:20 Total Creatine Kinase 181 (26-192) U/L Troponin I 0.015 (0-0.045) ng/ml Liver Function 01/20/21 Range/Units 13:20 Total Bilirubin 0.8 (0.2-1) mg/dl AST 54 H (15-37) U/L ALT 56 (12-78) U/L Alkaline Phosphatase 129 H (45-117) U/L Albumin 3.4 (3.4-5.0) gm/dl Diagnostic Findings Chest X-Ray 01/20/21 12:52 SINGLE VIEW CHEST CLINICAL HISTORY: Cough. Covid. FINDINGS: An AP, portable, upright chest radiograph is compared to study dated 05/10/2015. The cardiomediastinal silhouette is unremarkable. Patchy airspace consolidation is seen at both lung bases. No large pleural effusion or pneumothorax is identified. The bony thorax is grossly intact. Cholecystectomy clips are seen in the right upper quadrant. IMPRESSION: Mild patchy airspace consolidation is seen at both lung bases and consistent with the reported history of a viral pneumonia. Radiographic follow- up to resolution is recommended. ACT 112: Negative or not required by law. Electronically signed by: Alonzo Cyr M.D. 01/20/2021 1:57 PM Code Status & VTE Plan VTE Prophylaxis Plan VTE Prophylaxis will be ordered: Yes
[2021-01-20] MEDS ORDERED: LOPERAMIDE HCL 2 MG CAP PO PRN (21:11)
[2021-01-20] MEDS ORDERED: BUTALBITAL/ACETAMIN/CAFFEINE TAB PO PRN (21:11)
[2021-01-20] MEDS ORDERED: ONDANSETRON INJ 2 MG/ML 2 ML VIAL IV PRN (21:11)
[2021-01-20] MEDS ORDERED: hydrOXYzine HCl 25 MG TAB PO PRN (21:11)
[2021-01-20] MEDS ORDERED: LORazepam 0.5 MG TAB PO PRN (21:11)
[2021-01-20] MEDS ORDERED: SODIUM CHLORIDE 0.9% 1000ML 1,000 ML IV SCH (21:11)
[2021-01-20] MEDS ORDERED: linaCLOtide 72 MCG CAPSULE PO PRN (21:39)
[2021-01-20] MEDS: SPIRONOLACTONE 25 MG TAB PO SCH (22:40)
[2021-01-20] MEDS: HYDROXYCHLOROQUINE SULFATE 200 MG TAB PO SCH (22:41)
[2021-01-20] MEDS: TOPIRAMATE 25 MG TAB PO SCH (22:41)
[2021-01-20] MEDS: GABAPENTIN 300 MG CAP PO SCH (22:42)
[2021-01-20] MEDS: ACETAMINOPHEN 325 MG TAB PO PRN (22:58)
[2021-01-20] MEDS: ENOXAPARIN INJ 40 MG/0.4 ML SYR SQ SCH (23:00)
--- NOTE | 2021-01-21 06:27 | Electrocardiogram Report ---
Test Reason : Blood Pressure : / mmHG Vent. Rate : 096 BPM Atrial Rate : 096 BPM P-R Int : 152 ms QRS Dur : 098 ms QT Int : 394 ms P-R-T Axes : 057 -24 001 degrees QTc Int : 497 ms Normal sinus rhythm Moderate voltage criteria for LVH, may be normal variant Prolonged QT Abnormal ECG When compared with ECG of 14-JAN-2021 18:01, No significant change was found Confirmed by Harrison Madrigal ([id number]) on 01/21/2021 6:27:02 AM Referred By: REFERRED SELF Confirmed By:Harrison Madrigal
[2021-01-21 08:04] LABS: Hematocrit (blood only) 34.8 % (37-47); Hemoglobin 12.5 g/dL (12.0-16.0); Mean Corpuscular Hemoglobin 32.5 pg (25-34); Mean Corpuscular Hgb Conc 35.9 g/dL (32-36); Mean Corpuscular Volume 90.4 fL (80-100); Mean Platelet Volume 10.2 fL (7.4-10.4); Platelet Count 167 K/uL (130-400); RDW Coefficient of Variation 12.1 % (11.5-14.5); RDW Standard Deviation 39.9 fL (36.4-46.3); Red Blood Count 3.85 M/uL (4.2-5.4); White Blood Count 3.48 K/uL (4.8-10.8)
[2021-01-21] MEDS: ACETAMINOPHEN 325 MG TAB PO PRN ×2 (08:11→15:51)
[2021-01-21] MEDS: ESTROGENS, CONJUGATED 0.3 MG TAB PO SCH (08:12)
[2021-01-21] MEDS: SPIRONOLACTONE 25 MG TAB PO SCH ×2 (08:13→20:11)
[2021-01-21] MEDS: TOPIRAMATE 25 MG TAB PO SCH ×2 (08:13→20:11)
[2021-01-21 08:36] LABS: Est GFR (African American) 118.6 ml/min; Potassium 3.5 mmol/L (3.5-5.1)
[2021-01-21 08:37] LABS: Albumin Level 2.5 gm/dl (3.4-5.0); BUN Creatinine Ratio 20.4 (10-20); C Reactive Protein 5.16 mg/dl (0-0.29); Calcium 8.2 mg/dl (8.5-10.1); Creatinine Clr Calc Pharmacy 101.8 ml/min; Est GFR (Non-African American) 102.3 ml/min; Magnesium 2.2 mg/dl (1.8-2.4)
[2021-01-21 08:52] LABS: Albumin Globulin Ratio 0.6 (0.9-2); Bilirubin,Total 0.6 mg/dl (0.2-1); Globulin 4.1 gm/dl (2.5-4.0); Phosphorus 2.7 mg/dl (2.5-4.9); Total Protein 6.6 gm/dl (6.4-8.2)
[2021-01-21] MEDS: ENOXAPARIN INJ 40 MG/0.4 ML SYR SQ SCH ×2 (10:22→20:13)
--- NOTE | 2021-01-21 15:06 | Hospitalist Progress Note ---
Date of Service January 21, 2021 Assessment & Plan (1) Pneumonia due to COVID-19 virus: Plan: Patient is awake and alert. Dynamically she is doing okay. However, she does feel weak. Does have a persistent nonproductive cough. WBC is down to 3.48. Patient remains afebrile. CRP is down. Currently remains on room air. No indication for remdesivir/Decadron at this point. Patient becomes hypoxic, can consider starting treatment. She is out of the window of time where remdesivir would be helpful. Continue supportive management. (2) Poor appetite: Plan: 2/2 covid, Given ongoing dizziness, will start patient on maintenance IV fluids. (3) Diarrhea: Plan: Cont supportive care with Imodium PRN and IVF. Oral rehdration efforts with Powerade and other such liquids will be helpful. (4) SLE (systemic lupus erythematosus): Plan: Cutaneous lupus history, currently on Plaquenil which is held. Last dose was last evening. (5) Complement 2 deficiency: Plan: Per history (6) Gastroparesis: Plan: Supportive care, recommend small frequent meals. Zofran as needed. (7) Migraines: Plan: Has a history of migraines using aSQ injectable monthly called Samuel. Currently does not have a headache. Utilizes Fioricet as an abortive. (8) DVT prophylaxis: Plan: Lovenox Full code Disposition-to home when feeling better and tolerating p.o. Admission and Anticipated Discharge Date Admission Date: January 20, 2021 Subjective Patient reports she feels weak. Reports her appetite is less. Nauseous with no episodes of vomiting. Does feel dizzy. Reports she was about to pass out when she got out of the bed this morning. Denies any chest pain or palpitations. Does have persistent nonproductive cough. Denies any abdominal pain, diarrhea or dysuria. Rest of the review of system is negative. Review of Systems Review of Systems: All systems reviewed & are unremarkable except as noted in HPI & below Physical Exam Physical Exam: General: A&Ox3 HENT: NCAT, MMM, EOMI Eyes: PERRLA Neck: Supple, normal range of motion CVS: normal rate and rhythm Resp: b/l coarse breath sounds Abdomen: Soft, ND/NT, +BS Extremities: No c/c/e Neuro: face symmetric, no focal deficit Skin: warm and dry, no rashes/lesions/errythema MSK: normal ROM, no joint swelling/erythema Results & Data Results & Data ([facility]) Vital Signs (Past 12 Hours) Vital Signs Temp Pulse Resp BP Pulse Ox 01/21/21 11:04 36.9 C 66 17 106/69 99 01/21/21 07:34 36.9 C 64 17 144/70 H 95 01/21/21 03:54 36.7 C 65 20 114/66 96
[2021-01-21] MEDS: SODIUM CHLORIDE 0.9% 1000ML 1,000 ML IV SCH (15:44)
[2021-01-21] MEDS: HYDROXYCHLOROQUINE SULFATE 200 MG TAB PO SCH (20:10)
[2021-01-21] MEDS: GABAPENTIN 300 MG CAP PO SCH (20:10)
[2021-01-22] MEDS: SODIUM CHLORIDE 0.9% 1000ML 1,000 ML IV SCH ×2 (04:03→17:37)
[2021-01-22] MEDS: ESTROGENS, CONJUGATED 0.3 MG TAB PO SCH (09:46)
[2021-01-22] MEDS: TOPIRAMATE 25 MG TAB PO SCH ×2 (09:46→19:43)
[2021-01-22] MEDS: SPIRONOLACTONE 25 MG TAB PO SCH ×2 (09:46→19:42)
[2021-01-22] MEDS: ENOXAPARIN INJ 40 MG/0.4 ML SYR SQ SCH ×2 (09:47→19:44)
[2021-01-22 11:47] LABS: Basophils # (auto) 0.01 K/uL (0-0.2); Basophils % (auto) 0.3 %; Eosinophils # (auto) 0.19 K/uL (0-0.5); Eosinophils % (auto) 4.9 %; Hematocrit (blood only) 34.7 % (37-47); Hemoglobin 12.4 g/dL (12.0-16.0); Lymphocytes # (auto) 0.64 K/uL (1.2-3.4); Lymphocytes % (auto) 16.6 %; Mean Corpuscular Hemoglobin 32.9 pg (25-34); Mean Platelet Volume 10.5 fL (7.4-10.4); Monocytes # (auto) 0.42 K/uL (0.11-0.59); Monocytes % (auto) 10.9 %; Neutrophils % (auto) 67.3 %; Platelet Count 221 K/uL (130-400); RDW Standard Deviation 40.8 fL (36.4-46.3); Red Blood Count 3.77 M/uL (4.2-5.4); White Blood Count 3.86 K/uL (4.8-10.8)
[2021-01-22 11:56] LABS: D Dimer 590 ug/L FEU (0-500); Mean Corpuscular Hgb Conc 35.7 g/dL (32-36)
[2021-01-22 12:04] LABS: Alanine Aminotransferase 45 U/L (12-78); Albumin Level 2.5 gm/dl (3.4-5.0); Aspartate Aminotransferase 42 U/L (15-37); BUN Creatinine Ratio 9.1 (10-20); Blood Urea Nitrogen 6 mg/dl (7-18); Calcium 8.3 mg/dl (8.5-10.1); Carbon Dioxide 24 mmol/L (21-32); Chloride 109 mmol/L (98-107); Creatinine Clr Calc Pharmacy 83.7 ml/min; Est GFR (African American) 111.2 ml/min; Glucose 87 mg/dl (70-99); Potassium 3.5 mmol/L (3.5-5.1); Sodium 139 mmol/L (136-145)
[2021-01-22 12:08] LABS: Albumin Globulin Ratio 0.6 (0.9-2); Alkaline Phosphatase 103 U/L (45-117); Bilirubin,Total 0.7 mg/dl (0.2-1); Globulin 4.4 gm/dl (2.5-4.0); Total Protein 6.9 gm/dl (6.4-8.2); Troponin I < 0.015 ng/ml (0-0.045)
[2021-01-22 12:31] LABS: Appearance Urine Clear (Clear); Bilirubin Urine Negative (Negative); Blood Urine Negative (Negative); Color Urine Yellow; Glucose Urine UA Negative (Negative); Ketones Urine Trace (Negative); Leukocyte Esterase Urine Negative (Negative); Nitrite Urine Negative (Negative); Protein Urine Negative (Negative); Specific Gravity Urine 1.008 (1.000-1.030); Urobilinogen Urine Negative (Negative); pH Urine 7.5 (4.5-7.5)
--- NOTE | 2021-01-22 13:41 | Hospitalist Progress Note ---
Date of Service January 22, 2021 Assessment & Plan (1) Pneumonia due to COVID-19 virus: Plan: Patient is awake and alert. Hemodynamically she is doing okay. Does have a persistent nonproductive cough. Reports she continues to feel fatigue and does not feel much better. WBC at 3.86. Patient remains afebrile. CRP is down. Currently remains on room air. No indication for remdesivir/Decadron at this point. Patient becomes hypoxic, can consider starting treatment. She is out of the window of time where remdesivir would be helpful. Continue supportive management. Reported chest pain this morning. EKG NSR. Trop not concerning. D-dimer elevated in the setting of covid. No concern for PE. Trend d-cimer. (2) Poor appetite: Plan: 2/2 covid, Given decrease PO intake, continue with maintenance IV fluids. (3) Diarrhea: Plan: Cont supportive care with Imodium PRN and IVF. Oral rehdration efforts with Powerade and other such liquids will be helpful. (4) SLE (systemic lupus erythematosus): Plan: Cutaneous lupus history, currently on Plaquenil which is held. Last dose was last evening. (5) Complement 2 deficiency: Plan: Per history (6) Gastroparesis: Plan: Supportive care, recommend small frequent meals. Zofran as needed. (7) Migraines: Plan: Has a history of migraines using aSQ injectable monthly called Samuel. Currently does not have a headache. Utilizes Fioricet as an abortive. (8) DVT prophylaxis: Plan: Lovenox Full code Disposition-to home when feeling better and tolerating p.o. Admission and Anticipated Discharge Date Admission Date: January 20, 2021 Subjective This morning patient was experiencing left-sided chest heaviness. She describes it as sharp in nature, 5 out of 10 and nonradiating. Denies any shortness of breath., Continues to have persistent nonproductive cough. Denies any nausea, vomiting or diarrhea. Reports she continues to feel fatigue. Review of Systems Review of Systems: All systems reviewed & are unremarkable except as noted in HPI & below Physical Exam Physical Exam: General: A&Ox3 HENT: NCAT, MMM, EOMI Eyes: PERRLA Neck: Supple, normal range of motion CVS: normal rate and rhythm Resp: b/l coarse breath sounds Abdomen: Soft, ND/NT, +BS Extremities: No c/c/e Neuro: face symmetric, no focal deficit Skin: warm and dry, no rashes/lesions/errythema MSK: normal ROM, no joint swelling/erythema Results & Data Results & Data ([facility]) Vital Signs (Past 12 Hours) Vital Signs Temp Pulse Pulse Resp BP Pulse Ox 01/22/21 12:09 37.0 C 64 20 145/84 H 100 01/22/21 08:02 37.1 C 108 H 18 137/88 98 01/22/21 03:41 36.8 C 69 19 126/76 98 01/22/21 02:14 62
[2021-01-22] MEDS: HYDROXYCHLOROQUINE SULFATE 200 MG TAB PO SCH (19:41)
[2021-01-22] MEDS: GABAPENTIN 300 MG CAP PO SCH (19:41)
[2021-01-23] MEDS: TOPIRAMATE 25 MG TAB PO SCH (07:28)
[2021-01-23 07:42] LABS: D Dimer 660 ug/L FEU (0-500)
[2021-01-23] MEDS: ESTROGENS, CONJUGATED 0.3 MG TAB PO SCH (08:32)
[2021-01-23] MEDS: SPIRONOLACTONE 25 MG TAB PO SCH (08:32)
[2021-01-23] MEDS: ENOXAPARIN INJ 40 MG/0.4 ML SYR SQ SCH (10:07)
[2021-01-23] MEDS: SODIUM CHLORIDE 0.9% 1000ML 1,000 ML IV SCH (11:16)
--- NOTE | 2021-01-23 13:01 | Discharge Summary ---
Date of Service January 23, 2021 Admission HPI Per Admitting Provider This is a 65 yo F with a PMH of SLE on Plaquenil, complement 2 deficiency, migraine headaches, gastroparesis and other medical problems listed below who presents with ongoing cough, generalized weakness and poor appetite for the past 12 days. Initially had runny nose and cough starting 12 days ago. No fever but endorsed chills and body sweats where she has soaked through her clothing on 4 separate occasions. Also has poor appetite and is really not tried to eat much. Was tested at [facility] drive-through testing and found to be positive on 01/15/2021. Was started on Augmentin course 4 days ago for concern for pneumonia. In addition to poor appetite and nausea, patient endorses almost daily diarrhea for the past 10 days. No blood in stool. No abdominal pain or vomiting. Also now experiencing some shortness of breath in association with coughing as well as intermittent chest pain and back pain, worse with coughing. Did not receive Covid vaccine. also Covid positive. Patient feeling so weak due to lack of intake at home that she decided to come to ED for further care. No lightheadedness, headache, wheezing, hemoptysis, dysuria or constipation. Admission Exam Per Admitting Provider CONSTITUTIONAL: WNWD, vitals as above, generally ill-appearing, NAD, generally weak EYES: normal conjunctivae, no scleral icterus ENT: external ear and nose normal NECK: trachea midline, no lymphadenopathy, normal thyroid RESPIRATORY: crackles heard througout both lungs concentrated at the bases, pt coughs frequently with taking deep breaths. +rales - wheezes, normal respiratory effort CARDIOVASCULAR: regular rate and rhythm, S1 and 2 heard without murmurs, gallops or rubs, no JVD, no peripheral edema CHEST: inspection of chest was normal GASTROINTESTINAL: soft, nontender, ND, no guarding MUSCULOSKELETAL: no gross focal deficits, generalized weakness noted, head is normocephalic and atraumatic, neck supple, normal palpation of chest wall without tenderness SKIN: warm and dry, erythematous scaly rash in medial browline on face NEUROLOGIC: CN 2-12 grossly intact, normal cognition, normal speech, no tremor PSYCHIATRIC: alert cooperative and oriented to person, place and time. Principal Diagnosis COVID-19 pneumonia Discharge Exam Constitutional Elderly woman in no obvious distress Respiratory Not in any respiratory distress. Good air entry bilaterally. Coarse breath sounds bilaterally. No crackles or wheeze Cardiovascular RRR, S1-S2 Gastrointestinal (Abdomen) normal bowel sounds, soft, nontender, no hepatosplenomegaly Musculoskeletal no cyanosis or clubbing, extremities motor strength 5/5 Neurologic PERRL, EOMI, accommodation nl, no face palsy, no dysarthria Psychiatric A+Ox3, euthymic affect Discharge Data Allergies Allergy/AdvReac Type Severity Reaction Status Date / Time Iodinated Contrast Media Allergy Unknown 0 Verified 01/20/21 14:04 Sulfa (Sulfonamide Allergy Unknown Verified 01/20/21 14:04 Antibiotics) alcohol AdvReac Severe Redness of Unverified 01/20/21 14:06 [From Mastisol Adhesive] Skin, Rash, Itching gum mastic AdvReac Severe Redness of Unverified 01/20/21 14:06 [From Mastisol Adhesive] Skin, Rash, Itching methyl salicylate AdvReac Severe Redness of Unverified 01/20/21 14:06 [From Mastisol Adhesive] Skin, Rash, Itching storax AdvReac Severe Redness of Unverified 01/20/21 14:06 [From Mastisol Adhesive] Skin, Rash, Itching lactose AdvReac Mild Gastrointestinal Verified 01/23/21 12:58 Upset Consultations 01/20/21 14:57 ED Decision to Admit Stat Hospital Course (1) Pneumonia due to COVID-19 virus: Chest x-ray on admission showed patchy airspace consolidation in both lung bases. Patient was monitored in the hospital. Did not require any oxygen supplementation Remained hemodynamically stable. Did not require any Covid specific therapies. Symptoms were managed with supportive treatment. Patient reports improved cough management with guaifenesin/codeine syrup compared to guaifenesin alone. Ambulatory pulse oximetry/2 step did not show any indication for oxygen need with activity. (2) Poor appetite: (3) Diarrhea: (4) SLE (systemic lupus erythematosus): Cutaneous lupus history Continue plan continue home medication (5) Complement 2 deficiency: Per history (6) Gastroparesis: Supportive care, recommend small frequent meals. (7) Migraines: Has a history of migraines using aSQ injectable monthly called Samuel. Currently does not have a headache. Utilizes Fioricet as an abortive. Total Time Total Time Spent Total Time Spent (In Minutes): 50 Total Time Includes: Examination of the Patient, Discharge Planning and Medication Reconciliation Discharge Plan Discharge Items Patient Disposition: Home - Self-Care Reason For Visit: COVID Discharge Diagnosis: COVID-19 pneumonia Activity: Resume your previous activity Non-emergency contact: Primary Care Provider Call non-emergency contact if: you have any medication questions and your symptoms worsen Follow-up/Referrals: Carie Pandya DO [Primary Care Provider] - (Date & Time 01/30/2021 1:40 PM Provider Carie Pandya DO Department [facility] PLEASE NOTE THAT THIS IS A TELEHEALTH APPOINTMENT. PLEASE FOLLOW THE INSTRUCTIONS PROVIDED IN YOUR EMAIL. IF YOU HAVE ANY QUESTIONS REGARDING THIS APPOINTMENT, PLEASE CALL ) Diet: Regular Addtl Attending Provider Instructions: Mrs. Can. You came to the hospital complaining of Cough, poor appetite and generalized weakness. You were evaluated and found to have COVID-19 pneumonia. You were managed with supportive care. You did not require any Covid specific therapies as you did not require any oxygen supplementation. Your symptoms improved. You are being discharged home. Please continue to follow-up with your primary care doctor. It was a pleasure taking care of you Addtl Pilot Supervisor Provider Instructions: Home Isolation COVID-19 Instructions The following information about Home Isolation is from the CDC Website: https://www.cdc.gov/coronavirus/2019-ncov/hcp/wlcwgliz-gcgenzv-qlbpyx.html Stay home except to get medical care People who are mildly ill with COVID-19 are able to isolate at home during their illness. You should restrict activities outside your home, except for getting medical care. Do not go to work, school, or public areas. Avoid using public transportation, ride-sharing, or taxis. Separate yourself from other people and animals in your home People: As much as possible, you should stay in a specific room and away from other people in your home. Also, you should use a separate bathroom, if available. Animals: You should restrict contact with pets and other animals while you are sick with COVID-19, just like you would around other people. Although there have not been reports of pets or other animals becoming sick with COVID-19, it is still recommended that people sick with COVID-19 limit contact with animals until more information is known about the virus. When possible, have another member of your household care for your animals while you are sick. If you are sick with COVID-19, avoid contact with your pet, including petting, snuggling, being kissed or licked, and sharing food. If you must care for your pet or be around animals while you are sick, wash your hands before and after you interact with pets and wear a face mask. Call ahead before visiting your doctor If you have a medical appointment, call the healthcare provider and tell them that you have or may have COVID-19. This will help the healthcare providers office take steps to keep other people from getting infected or exposed. Wear a face mask You should wear a face mask when you are around other people (e.g., sharing a room or vehicle) or pets and before you enter a healthcare providers office. If you are not able to wear a face mask (for example, because it causes trouble breathing), then people who live with you should not stay in the same room with you, or they should wear a face mask if they enter your room. Cover your coughs and sneezes Cover your mouth and nose with a tissue when you cough or sneeze. Throw used tissues in a lined trash can. Immediately wash your hands with soap and water for at least 20 seconds or, if soap and water are not available, clean your hands with an alcohol-based hand subsurface augmentee elint operator that contains at least 60% alcohol. Clean your hands often Wash your hands often with soap and water for at least 20 seconds, especially after blowing your nose, coughing, or sneezing; going to the bathroom; and before eating or preparing food. If soap and water are not readily available, use an alcohol-based hand subsurface augmentee elint operator with at least 60% alcohol, covering all surfaces of your hands and rubbing them together until they feel dry. Soap and water are the best option if hands are visibly dirty. Avoid touching your eyes, nose, and mouth with unwashed hands. Avoid sharing personal household items You should not share dishes, drinking glasses, cups, eating utensils, towels, or bedding with other people or pets in your home. After using these items, they should be washed thoroughly with soap and water. Clean all high-touch surfaces everyday High touch surfaces include counters, tabletops, doorknobs, bathroom fixtures, toilets, phones, keyboards, tablets, and bedside tables. Also, clean any surfaces that may have blood, stool, or body fluids on them. Use a household cleaning spray or wipe, according to the label instructions. Labels contain instructions for safe and effective use of the cleaning product including precautions you should take when applying the product, such as wearing gloves and making sure you have good ventilation during use of the product. Monitor your symptoms Seek prompt medical attention if your illness is worsening (e.g., difficulty breathing).Beforeseeking care, call your healthcare provider and tell them that you have, or are being evaluated for, COVID-19. Put on a face mask before you enter the facility. These steps will help the healthcare providers office to keep other people in the office or waiting room from getting infected or exposed. Ask your healthcare provider to call the local or state health department. Persons who are placed under active monitoring or facilitated self- monitoring should follow instructions provided by their local health department or occupational health professionals, as appropriate. When working with your local health department check their available hours. If you have a medical emergency and need to call 911, notify the dispatch personnel that you have, or are being evaluated for COVID-19. If possible, put on a face mask before emergency medical services arrive. Discontinuing home isolation Patients with confirmed COVID-19 should remain under home isolation precautions until the risk of secondary transmission to others is thought to be low. The decision to discontinue home isolation precautions should be made on a [id number] basis, in consultation with healthcare providers and [facility] and [facility] health departments. Pending Studies at Discharge: No Stand-Alone Forms: [facility], Smoking Cessation Medications and DC Order Prescriptions: New codeine-guaifenesin 10-100 mg/5 mL Liquid 10 ml PO Q6H PRN (Reason: cough) Qty: 500 RF: 0 Continued gabapentin 300 mg Capsule 300 mg PO HS RF: 0 hydroxychloroquine 200 mg Tablet 400 mg PO HS RF: 0 ketoconazole 2 % Shampoo 1 % TOPICAL [id number] RF: 0 Premarin 0.3 mg Tablet 0.3 mg PO DAILY RF: 0 spironolactone 25 mg Tablet 25 mg PO BID RF: 0 Linzess 145 mcg Capsule 145 mcg PO DAILY PRN (Reason: Constipation) RF: 0 topiramate [Topamax] 25 mg Tablet 75 mg PO BID RF: 0 acetaminophen [Tylenol Extra Strength] 500 mg Tablet 1,000 mg PO Q6 PRN (Reason: Pain) RF: 0 iwjqeujoob-cahoiwgdzuhyk-lork [Fioricet] 50-300-40 mg Capsule 1 - 2 cap PO Q8 PRN (Reason: Migraine Headache) RF: 0 hydroxyzine HCl 50 mg tablet 50 mg PO HSZ PRN (Reason: insomnia) Qty: 30 RF: 0 lorazepam 0.5 mg Tablet 0.5 mg PO DAILY PRN (Reason: anxiety) Qty: 10 RF: 0 Ajovy Syringe 225 mg/1.5 mL syringe 225 mg SUBCUT MONTHLY RF: 0 sumatriptan succinate [Imitrex] 50 mg Tablet 50 mg PO UD RF: 0 docusate sodium [Colace] 100 mg Capsule 100 mg PO BID PRN (Reason: Constipation) RF: 0 Nurtec ODT 75 mg tablet,disintegrating 75 mg PO UD RF: 0 Discontinued amoxicillin-pot clavulanate [Augmentin] 875-125 mg tablet 1 tab PO Q12 RF: 0 Discharge Orders: Discharge Order (Routine); Ordered 01/23/21 Ordered By: Pooja Nava Admission Data Admit Date/Time: 01/20/21 15:54 Attending Provider: Pooja Nava I. Admit Provider: Nicolle Muller Primary Care Provider: Carie Pandya Other Providers: Salomón Lomeli Other Interventions: Discharge Summary Assessment (RN) Last Done: 01/23/21 14:37
--- NOTE | 2021-01-23 21:35 | Electrocardiogram Report ---
Test Reason : Blood Pressure : / mmHG Vent. Rate : 071 BPM Atrial Rate : 071 BPM P-R Int : 154 ms QRS Dur : 102 ms QT Int : 434 ms P-R-T Axes : 023 -21 -10 degrees QTc Int : 471 ms Normal sinus rhythm Moderate voltage criteria for LVH, may be normal variant Nonspecific T wave abnormality Prolonged QT Abnormal ECG When compared with ECG of 20-JAN-2021 12:43, No significant change Confirmed by Harrison Madrigal ([id number]) on 01/23/2021 9:34:36 PM Referred By: REFERRED SELF Confirmed By:Harrison Madrigal
== END 2021-01-23 16:58 | disposition home or self-care (01) | DRG 177 ==
LOC: ED 12:31 → 2S 15:54 → SUATTDRO 15:54 → 2S 18:05
DX: Z88.2 Allergy status to sulfonamides; K31.84 Gastroparesis; Z98.1 Arthrodesis status; G43.909 Migraine, unspecified, not intractable, without status migrainosus; Z91.041 Radiographic dye allergy status; U07.1 COVID-19; J12.82 Pneumonia due to coronavirus disease 2019; R19.7 Diarrhea, unspecified; M32.19 Other organ or system involvement in systemic lupus erythematosus